=== PATIENT | female | born 1940 | race Two or more races ===

== ENCOUNTER 2024-06-19 09:41 | Emergency (ER) | payer MEDICARE, MEDICAID, SELFPAY ==
[2024-06-19 09:41] VITALS: BMI 32.4
[2024-06-19 09:52] VITALS: BP 168/81; PULSE 90; RESP 18; TEMP 36.6; O2SAT 95; BMI 32.4
--- NOTE | 2024-06-19 10:03 | EDNOTE_ITS ---
Lower Extremity Injury RME/HPI General Chief Complaint: Extremity Injury, Lower Stated Complaint: LEFT KNEE PAIN X1WK Time Seen by Provider: 06/19/24 09:53 Arrival date/time: 06/19/24 09:41 84-year-old female presents emergency department complains of a fall approxi-1 week ago injuring her left knee patient reports pain to the left knee patient also reports that approximate 10 days ago she hit herself in the hand with a hammer patient has bruising and swelling to her left hand Limitations: no limitations Related Data Home Medications ?Medication ?Instructions ?Recorded ?Confirmed levothyroxine 112 mcg tablet 112 mcg PO QDAY 09/02/22 01/06/24 losartan 25 mg tablet 25 mg PO QDAY 01/11/23 01/06/24 famotidine 20 mg tablet 20 mg PO QDAY 10/05/23 01/06/24 mirabegron 50 mg tablet,extended 50 mg PO QDAY 01/06/24 01/06/24 release 24 hr (Myrbetriq) Previous Rx's ?Medication ?Instructions ?Recorded albuterol sulfate 90 mcg/actuation 2 inh inhalation Q6H PRN shortness 04/12/24 aerosol inhaler of breath or wheezing #8.5 grams tramadol 25 mg tablet 25 mg PO BID PRN pain #10 tabs 06/19/24 Allergies Allergy/AdvReac Type Severity Reaction Status Date / Time No Known Allergies Allergy Verified 06/19/24 09:43 Review of Systems Review of Systems Systems Reviewed: All systems reviewed, normal except as documented Constitutional Constitutional: Reports system reviewed and no additional complaints, except as documented, Denies fever(s) and Denies headache(s) Eyes Eyes: Reports system reviewed and no additional complaints, except as documented and Denies blurry vision ENT Ears, Nose, Mouth, and Throat: Reports system reviewed and no additional complaints, except as documented, Denies headache(s), Denies nasal congestion and Denies nasal discharge Cardiovascular Cardiovascular: Reports system reviewed and no additional complaints, except as documented, Denies chest pain and Denies dyspnea Respiratory Respiratory: Reports system reviewed and no additional complaints, except as documented, Denies chest congestion, Denies cough and Denies dyspnea Gastrointestinal Gastrointestinal: Reports system reviewed and no additional complaints, except as documented and Denies abdominal pain Musculoskeletal Musculoskeletal: Reports system reviewed and no additional complaints, except as documented, Reports arthralgias, Denies deformity, Denies numbness, Reports stiffness and Denies tingling Integumentary/Breasts Skin/Breast: Reports system reviewed and no additional complaints, except as documented and Denies rash Neurologic Neurologic: Reports system reviewed and no additional complaints, except as documented, Reports as per HPI, Denies headache(s), Denies numbness and Denies tingling Past Medical History Past Medical History NEUROLOGIC: Negative Neurological Disorders or Seizures CARDIAC: Positive Cardiac Disorders, Hypercholesterolemia (TAKES MED) and Hypertension (TAKES MED); Negative Congestive Heart Failure, Edema, Cellulitis or Varicose Veins RESPIRATORY: Negative Chronic Obstructive Pulmonary Disease (COPD), Asthma, Tuberculosis or Sleep Apnea GASTROINTESTINAL: Positive Gastrointestinal Disorders, Gall Bladder Disease, Colitis, Hemorrhoids and Gastroesophageal Reflux Disease; Negative Hepatitis GENITOURINARY: Negative Genitourinary Disorders or Renal Disease REPRODUCTIVE: Positive Previous Pregnancies MUSCULOSKELETAL: Positive Musculoskeletal Disorders, Arthritis and Degenerative Disk Disease; Negative Carpal Tunnel Syndrome ENT: Positive Cataracts ENDOCRINE: Positive Endocrine Disorders and Hypothyroidism (TAKES MED); Negative Diabetes Mellitus Type 1 or Diabetes Mellitus Type 2 HEMATOLOGIC: Negative Blood Disorders or Sickle Cell Disease PSYCHO/SOCIAL: Positive Depression and Anxiety OTHER HISTORY: Positive Autoimmune Disease; Negative Hospitalization, Shingles, Falls, Blood Transfusions, Blood Transfusion Reaction, Anesthesia Reactions, Organ Transplant, Chemotherapy, Radiation Therapy, MRSA, Chicken Pox, Measles, Mumps or Cancer Family History FAMILY HISTORY: Positive Family Cardiac Disorders, Family Gastrointestinal Problems, Family Cancer and Family Surgery; Negative Family Psychiatric Problems, Family Respiratory Disorders or Family Anesthesia Reaction Surgical History SURGICAL: Positive Endocrine Surgery, Thyroidectomy, Abdominal Surgery, Bowel Surgery and Hysterectomy; Negative Cardiac Surgery, Pacemaker, Joint Replacement, Amputation, Open Reduction Internal Fixation, Arthroscopy, Neurologic Surgery, Vasectomy or Organ Transplant Social History SMOKING STATUS: Never smoker SUBSTANCE USE: does not use ED Exam General Limitations: Present no limitations General appearance: Present alert and in no apparent distress Head Head exam: Present atraumatic Eye Eye exam: Present normal appearance, PERRL and EOMI ENT ENT exam: Present normal exam, normal oropharynx and mucous membranes moist Neck Neck exam: Present normal inspection, full ROM and trachea midline Chest Chest inspection: Present normal inspection and symmetric chest wall rise Respiratory Respiratory exam: Present normal lung sounds bilaterally Cardiovascular Cardiovascular exam: Present regular rate, normal rhythm and normal heart sounds Abdominal Exam Abdominal exam: Present soft and normal bowel sounds Extremities Exam Extremities exam: Present normal inspection, full ROM, tenderness, normal capillary refill and joint swelling (Mild swelling left hand with bruising as well as mild swelling left knee); Absent pedal edema or calf tenderness Back Exam Back exam: Present normal inspection and full ROM Neurological Exam Neurological exam: Present alert, oriented X3 and CN II-XII intact Psychiatric Psychiatric exam: Present normal affect and normal mood Skin Skin exam: Present warm, dry, intact and normal color Course Quality Measures none Orders Category Date Time Status US venous doppler LE LT Stat Exams 06/19/24 10:04 Completed XR hand comp LT min 3V Stat Exams 06/19/24 10:04 Completed XR knee LT 3V Stat Exams 06/19/24 10:04 Completed Vital Signs Vital signs: Vital Signs Temperature 97.9 F 06/19/24 09:52 Pulse Rate 90 06/19/24 09:52 Respiratory Rate 18 06/19/24 09:52 Blood Pressure 168/81 H 06/19/24 09:52 Pulse Oximetry (%) 95 06/19/24 09:52 Oxygen Delivery Method Room Air 06/19/24 09:52 O2 saturation 95% room air within normal limits Extremity Injury, Lower MDM Narrative MDM Narrative:: 84-year-old female presents emergency department complains of a fall approxi-1 week ago injuring her left knee patient reports pain to the left knee patient also reports that approximate 10 days ago she hit herself in the hand with a hammer patient has bruising and swelling to her left hand X-rays as well as ultrasound obtained no acute emergent findings noted Patient has a knee brace already Patient discharged with pain medication Patient discharged home in no distress to follow-up with primary care doctor in the next 24 to 48 hours and for any worsening symptoms to return to the ER immediately Patient data External records reviewed:: [facility] previous records Clinical information provided by:: patient Social determinants that could affect healthcare access:: none Patient has the following chronic illnesses:: See history How is presenting disease/condition affected by chronic disease/condition?: uneffected by Evaluation data The following diagnostics were reviewed and interpreted by me:: radiology exam(s) Lab and/or radiology exams considered but not ordered:: Radiology obtained Interpretation Summary: Reviewed by me Medications / Prescriptions Medications or Prescriptions considered but not ordered:: Rx given Medication administrations:: Rx given Consultations Consultation(s) initiated? (list below): No Diagnosis Extremity Injury, Lower Differential Diagnosis: acute internal derangement of knee and other (Knee sprain, knee fracture) Most likely diagnosis given after review of the tests above:: Knee sprain Admission Indicated Admission indicated?: not indicated Admission Request Was there a request for admission?: No Disposition Plan Disposition Plan: Discharge Discharge Attestation Discharge Attestation: The patient and all family members were given an opportunity to ask questions and understood the discharge instructions. Discharge instructions specifically effects, indications for sooner follow up or return to the emergency department, and the expected course of current diagnosis. Patient condition: Stable Discharge Plan Plan Patient Disposition: HOME (Self Care) Disposition Comment: Stable Prescriptions/Referrals Prescriptions/Med Rec: New tramadol 25 mg tablet 25 mg PO BID PRN (Reason: pain) Qty: 10 0RF No Action mirabegron [Myrbetriq] 50 mg tablet extended release 24 hr 50 mg PO QDAY losartan 25 mg tablet 25 mg PO QDAY levothyroxine 112 mcg tablet 112 mcg PO QDAY Patient Comments: TAKE 1 TAB BY MOUTH ONCE A DAY (IN THE MORNING) 1 HOUR BEFORE MEALS famotidine 20 mg tablet 20 mg PO QDAY albuterol sulfate 90 mcg/actuation HFA aerosol inhaler 2 inh inhalation Q6H PRN (Reason: shortness of breath or wheezing) Qty: 8.5 0RF Referrals: Yudy Lanza FNP [Primary Care Provider] - In 1 week Problem List Clinical Impression: Acute pain of left knee Patient/Caregiver Discharge Instructions Education Materials: ED WHITNEY Wrap Additional Instructions: Please follow up with your primary care doctor in the next 24-48hrs for any worsening symptoms return here immediately Print Language: Burkinan Stand Alone Forms: Renee Award Info., Patient Portal Info Letter PATEL/KNIT GOODS PRESS HAND Supervising Physician PATEL/MELISSA Supervising Physician: Dr Álvarez
--- NOTE | 2024-06-19 10:04 | XR_ITS ---
Examination: Duplex scan of the lower extremity, unilateral left complete Date and time of exam: June 19, 2024 1052 hours INDICATIONS: Patient fell one month ago with injury to the left leg, persistent left lower leg pain Technique: Duplex scan of the extremity veins using B-mode/grayscale imaging and Doppler spectral analysis and color flow Attention is directed to internal echogenicity, compression and augmentation involving these veins, color flow assessment, spectral analysis Findings: Major deep venous structures in the extremity demonstrate normal course and caliber. There is no evidence of deep vein thrombosis. Normal color flow and spectral analysis Impression: Negative for DVT.. Technologist describes linear structure within the posterior tibial vein, for instance image 2, unclear etiology, recommend plain films left lower leg follow-up
--- NOTE | 2024-06-19 10:04 | XR_ITS ---
Examination: Hand, left 3 views Technique: Hand AP, oblique, lateral 3 views Date and time of exam: June 19, 2024 1015 hours INDICATIONS: Injury to the hand today, hand pain FINDINGS: Advanced osteoarthritis first carpometacarpal joint No acute fracture No dislocation IMPRESSION: No acute fracture
--- NOTE | 2024-06-19 10:04 | XR_ITS ---
Examination: Knee, left , 3 views Technique: Knee AP, lateral, oblique 3 views Date and time of exam: June 19, 2024 1015 hours INDICATIONS: Patient fell one month ago with injury to the knee, knee pain. FINDINGS: Severe osteopenia No fracture or dislocation IMPRESSION: No fracture or dislocation
== END 2024-06-19 12:28 | disposition home or self-care (01) ==
PROVIDERS: Emergency Provider Emergency Medicine; PCP Nurse Practitioner Family
DX: S60.222A Contusion of left hand, initial encounter (principal); S89.92XA Unspecified injury of left lower leg, initial encounter; W19.XXXA Unspecified fall, initial encounter; W22.8XXA Striking against or struck by other objects, initial encounter
CPT/HCPCS: 73130; 73562; 93971; 99284

== ENCOUNTER 2024-07-06 09:52 | Outpatient (AMB) | payer MEDICARE, MEDICAID, SELFPAY ==
[2024-07-06 10:50] VITALS: BP 154/79; PULSE 94; RESP 18; TEMP 36.8; O2SAT 94; BMI 32.0
--- NOTE | 2024-07-06 10:50 | ORTHONT_ITS ---
Vital signs 07/06/24 10:50 Height 1.52 m Height Method Stated Weight 74.417 kg Weight Measurement Method Standing Scale BMI 32.0 BP 154/79 H Blood Pressure Source Automatic Cuff Blood Pressure Location Left Upper Arm Position Sitting Respiration 18 Pulse 94 Pulse Source Monitor Temp 98.3 F Temp Source Temporal Artery Scan Pulse Oximetry (%) 94 L Oxygen Delivery Method Room Air Med/Allergies Allergies & Medications Allergies No Known Allergies Allergy (Verified 07/06/24 10:51) Medication Reconciliation levothyroxine 112 mcg tablet 112 mcg PO QDAY 09/02/22 [History Confirmed 4] losartan 25 mg tablet 25 mg PO QDAY 01/11/23 [History Confirmed 07/06/24] famotidine 20 mg tablet 20 mg PO QDAY 10/05/23 [History Confirmed 07/06/24] mirabegron 50 mg tablet,extended release 24 hr (Myrbetriq) 50 mg PO QDAY 01/06/24 [History Confirmed 07/06/24] albuterol sulfate 90 mcg/actuation aerosol inhaler 2 inh inhalation Q6H PRN shortness of breath or wheezing #8.5 grams 04/12/24 [Rx Confirmed 07/06/24] tramadol 25 mg tablet 25 mg PO BID PRN pain #10 tabs 06/19/24 [Rx Confirmed 07/06/24] Subjective Visit Visit for: follow up visit and knee Immunization / Flu Flu Vaccine in the Last 12 Months: No Flu Vaccine Exclusion Criteria: No Exclusion Criteria History of Present Illness Chief complaint: BILATERAL KNEE PAIN Date of injury / onset of symptoms: YEARS WORSENING THE LAST DAY 25 Patient is a 84-year-old female with bilateral knee pain worse on the left. The pains been ongoing for over 10 years but is worsened in the last 3 months. This occurred after a fall. She is at the emergency room and no fracture could be seen. She was discharged with a brace. Personal History Occupation: UNEMPLOYED Red flag PMH: none Pain Pain level (0-10): 10 Pain duration: CONSTANT Pain location: inside (medial), outside (lateral), anterior and posterior Pain quality: sharp, dull and aching Pain timing: night, increases with activity, stairs and other (specify) (LAYING) Associated signs & symptoms: numbness, weakness and stiffness Ambulatory data Ambulatory device: cane Treatments Improvement with previous injections: No Improvement with PT: No Improvement with NSAIDS: no Review of Systems Review of Systems: All systems negative unless otherwise noted in HPI. Exam Exam Patient is in no acute distress and is cooperative with the examination today. Breathing is nonlabored. In no respiratory distress. Bilateral extremities were evaluated and demonstrates sensation intact to light touch. Palpable pedal pulses are present. No significant edema is present. Bilateral hips were examined. The patient has no pain with log roll of the hips. Internal rotation to 30 degrees and external rotation to 30 degrees is painless. Negative FADIR. The left knee was examined. The left knee is in [varus] alignment. Range of motion from [0-115] degrees. Knee is stable to varus and valgus as well as AP translation with <5mm. Patient has a [negative] McMurrays. There is [no] pain with patellofemoral compression and [no] crepitus noted. The knee is [tender] to palpation [medially]. The right knee was also examined. The right knee is in [varus] alignment. Range of motion from [0-120] degrees. Knee is stable to varus and valgus as well as AP translation with <5mm. Patient has a [negative] McMurrays. There is [no] pain with patellofemoral compression and [no] crepitus noted. The knee is [tender] to palpation [medially]. X-rays demonstrate severe arthritis of the right knee with complete obliteration of the medial joint space. On the left side she has mild to moderate arthritis of the left knee Assessment and Plan Problem List (1) Degenerative arthritis of knee, bilateral: Status: Acute Plan: Patient is an 84-year-old female with bilateral knee pain and bilateral knee arthritis. We discussed nonoperative and operative options. Given her significant pain and mild to moderate arthritis on x-ray. I recommend continued conservative treatment at this time. We discussed bilateral knee cortisone injections today. Plan Recommend knee cortisone injections as patient would like to proceed with conservative treatment at this time. The risks and benefits of the procedure wer e reviewed with the patient and patient gave verbal consent to continue with the procedure. Procedure: performed by Dr. Genao Using sterile technique the Bilateral knees were thoroughly prepped with alc ohol, and approximately 1 cc of Kenalog 40 mg/mL and 4 cc of 1% lidocaine was injected into each knee without resistance into the medial tibial femoral joint space. The patient tolerated the procedure. Advanced Care Planning Discussion Advance care planning discussed with:: patient Office Procedures GNS Level of Care Nursing/Assessment Patient Status: Established Patient Nursing Assessment/Reassesment: Medication Reconciliation, Update PMH in EMR and Vital Signs Coordination of Care: Complex Care and Chronic Disease 1-5, Education Complex Pt/Fam, Consent,records obtained, informed consent, Results/Orders obtained and Staff clarify orders Special Needs: Language special needs Established Patient Charge Established Patient Point Assignment: 95 Established Patient Point Charge: EP Level 3 (80-115) Surgical Proc/IM SQ injection Major Surgical Procedure: Yes (BILATERAL KNEE INJECTION ) Medication Given Medication Given Medication Given: Yes Documented Dose Given: 8 Route: Infiitration Medication Given Medication Given Medication Given: Yes Documented Dose Given: 2 Route: Infiitration Office Meds Xylocaine 10 mg/mL (1 %) injection solution Performing Provider: Lobo Genao MD Performing Location: [facility] Administered by: Lobo Genao MD on 07/06/24 11:51 Dose Route Admin Location Dispensed Lot Number Expiration Date [facility] [employer] 40 mL Infiltration 40 mL [id number] [employer] triamcinolone acetonide 40 mg/mL suspension for injection Performing Provider: Lobo Genao MD Performing Location: [facility] Administered by: Lobo Genao MD on 07/06/24 11:51 Dose Route Admin Location Dispensed Lot Number Expiration Date [facility] [employer] 80 mg intra-articular 2 mL [id number] [employer] Past Medical History Past Medical History Have you ever been diagnosed with any of the following: Neurological Problems Seizures: No Cardiology Problems Hypercholesterolemia: Yes (TAKES MED) Congestive Heart Failure: No Edema: No Cellulitis: No Hypertension: Yes (TAKES MED) Varicose Veins: No Respiratory Problems Chronic Obstructive Pulmonary Disease (COPD): No Asthma: No Tuberculosis: No Sleep Apnea: No Stomache/Intestinal Problems Hepatitis: No Gall Bladder Disease: Yes Colitis: Yes Hemorrhoids: Yes Gastroesophageal Reflux Disease: Yes Genital/Urinary Problems Renal Disease: No Reproductive Problems Previous Pregnancies: Yes Musculoskeletal Problems Arthritis: Yes Degenerative Disk Disease: Yes Carpal Tunnel Syndrome: No Head,Eye,Nose,Throat Problems Cataracts: Yes Endocrine Problems Diabetes Mellitus Type 1: No Diabetes Mellitus Type 2: No Hypothyroidism: Yes (TAKES MED) Blood Problems Sickle Cell Disease: No Psychologic Problems Depression: Yes Anxiety: Yes Other Problems Hospitalization: No Shingles: No Falls: No Blood Transfusions: No Blood Transfusion Reaction: No Anesthesia Reactions: No Organ Transplant: No Chemotherapy: No Radiation Therapy: No MRSA: No Chicken Pox: No Measles: No Mumps: No Cancer: No Surgical History Hysterectomy: Yes Pacemaker: No Thyroidectomy: Yes
== END 2024-07-06 11:27 | disposition home or self-care (01) ==
LOC: HODSRG 09:52
PROVIDERS: PCP Nurse Practitioner Family; Referring Provider Nurse Practitioner Family; Supervising Provider Orthopaedic Surgery Adult Reconstructive Orthopaedic Surgery; Visit Provider Orthopaedic Surgery Adult Reconstructive Orthopaedic Surgery
DX: M17.0 Bilateral primary osteoarthritis of knee (principal); M25.562 Pain in left knee; M25.561 Pain in right knee; I10 Essential (primary) hypertension; E78.00 Pure hypercholesterolemia, unspecified; K21.9 Gastro-esophageal reflux disease without esophagitis; E03.9 Hypothyroidism, unspecified
CPT/HCPCS: 20610; 73564; 99213; J3301; J3490; G0463

== ENCOUNTER 2024-07-17 21:40 | Emergency (ER) | payer MEDICARE, MEDICAID, SELFPAY ==
[2024-07-17 21:41] VITALS: BMI 32.0
[2024-07-17 21:49] VITALS: BP 162/84; PULSE 86; RESP 20; TEMP 36.7; O2SAT 95
--- NOTE | 2024-07-17 22:17 | XR_ITS ---
Examination: CT brain head without contrast. 2-D sagittal coronal reconstructions Date and time of exam:July 17, 2024 1101 hrs. Comparison August 30, 2023 Indications: Head pain beginning this morning CTDI: vol (mGy):44.3 DLP: (mGycm): 895 Technique: Multiple CT axial sections of the brain have been obtained, 5 mm slice thickness. Contrast has not been administered. 2-D sagittal, coronal reconstructions have been obtained Low dose protocols were performed. One or more of the following dose reduction techniques were used; automated exposure control, adjustment of the mA and/or KV according to patient size, use of iterative reconstruction technique. Findings: No significant ventricular enlargement. Small cerebral calcifications Intra-axial or extra-axial hemorrhage density is not seen. No mass effect or midline shift Basal cisterns are not remarkable. Fourth ventricle is midline. Cranial vault intact. Impression: Negative for acute hemorrhage, mass effect or midline shift
--- NOTE | 2024-07-17 22:17 | XR_ITS ---
Examination: PA chest single view Technique: Upright PA chest single view Exam date and time: September 17, 2023 1037 hrs. Indications: Upper abdominal pain chest pain today Findings: Normal heart size Mild elevation left hemidiaphragm. No pneumonia or pulmonary edema Impression: No pneumonia or pulmonary edema
--- NOTE | 2024-07-17 22:18 | PD.EDRME ---
Rapid Medical Screening Exam E Arrival date/time: 07/17/24 21:40 84F with history of HTN and thyroid disorder presents to ED with 1 hour of BATES and gen ab pain and N/V. Chief Complaint: Headache Vital signs: Vital Signs Temperature 98.1 F 07/17/24 21:49 Pulse Rate 86 07/17/24 21:49 Respiratory Rate 20 07/17/24 21:49 Blood Pressure 162/84 H 07/17/24 21:49 Pulse Oximetry (%) 95 07/17/24 21:49 Oxygen Delivery Method Room Air 07/17/24 21:49
[2024-07-17 22:43] LABS: Basophils % (Auto) 0 % (0-2.5); Eosinophils # (Auto) 0.9 Thou/mm3 (0.0-0.5); Eosinophils % (Auto) 10 % (0-10); Hematocrit 41.4 % (36.0-46.0); Hemoglobin 13.6 g/dL (12.0-16.0); Immature Granulocytes % (Auto) 0 % (0-0); Immature Granulocytes Auto 0.03 Thou/mm3 (0.00-0.00); Lymphocytes # (Auto) 3.5 Thou/mm3 (1.0-4.8); Lymphocytes % (Auto) 40 % (10-50); Mean Corpuscular HGB Conc 32.9 g/dl (31.0-37.0); Mean Corpuscular Volume 91 fL (80-100); Monocytes # (Auto) 1.4 Thou/mm3 (0.0-0.8); Monocytes % (Auto) 15 % (0-12); Neutrophils # (Auto) 3.1 Thou/mm3 (1.8-7.7); Neutrophils % (Auto) 35 % (37-80); Nucleated Red Blood Cell % 0 /100 WBC (0); Platelet Count 263 Thou/mm3 (140-440); RDW Standard Deviation 46.6 fL (36.4-46.3); Red Blood Count 4.53 Miln/mm3 (4.00-5.20)
[2024-07-17] MEDS: ONDANSETRON ODT 4 MG TABRAP PO (22:51)
[2024-07-17 23:01] LABS: Partial Thromboplastin Time 26.2 Seconds (22.0-36.0); Prothrombin Time 11.3 Seconds (9.0-12.2)
[2024-07-17 23:07] LABS: Alanine Aminotransferase 46 U/L (10-49); Albumin, Serum 4.5 gm/dL (3.4-4.8); Albumin/Globulin Ratio 1.3 (1.2-2.2); Alkaline Phosphatase 102 U/L (46-116); Anion Gap 8 (7-16); Aspartate Amino Transferase 57 U/L (0-34); BUN/Creatinine Ratio 17 Ratio (12-20); Bilirubin,Total 0.6 mg/dL (0.3-1.2); Blood Urea Nitrogen 15 mg/dL (9-23); Calcium 10.2 mg/dL (8.3-10.6); Calcium (Corrected) 10.2 mg/dL (8.5-10.1); Carbon Dioxide 26.9 mMol/L (20.0-31.0); Chloride 106 mMol/L (98-107); Creatinine (Component) 0.9 mg/dL (0.6-1.3); Estimated Creatinine Clearance 42.7 mL/min (>60); Globulin 3.5 gm/dL (2.3-3.5); Glucose 111 mg/dL (74-106); Osmolality,Calculated 283 (275-295); Potassium 4.2 mMol/L (3.4-5.1); Sodium 141 mMol/L (136-145); Troponin I < 0.020 ng/mL (0.0-0.045); eGFR > 60 See Note
[2024-07-17 23:16] VITALS: BP 174/80; PULSE 78; RESP 17; TEMP 36.8; O2SAT 95
[2024-07-18 00:09] LABS: Lipase 62 U/L (12-53)
[2024-07-18 00:15] LABS: Bilirubin,Urine Negative (Negative); Blood,Urine Negative (Negative); Clarity,Urine Clear (Clear/Hazy); Collection Type, Urine Clean Catch; Color,Urine Lt-Yellow (Lt Yel-Yel); Glucose, Urine Negative (Negative); Ketones,Urine Negative (Negative); Leukocyte Esterase,Urine Negative (Negative); Nitrite,Urine Negative (Negative); PH,Urine 6.5 (5.0-7.0); Protein,Urine Negative (Neg - Trace); RBC,Urine 2 /hpf (0-3); Specific Gravity,Urine 1.009 (1.001-1.035); Squamous Epithelial Cell,Urine 1 /hpf (0-5); Urobilinogen,Urine Negative mg/dL (0.0-1.0); WBC,Urine 2 /hpf (0-5)
[2024-07-18 00:20] VITALS: BP 157/90; PULSE 75; RESP 18; O2SAT 93
--- NOTE | 2024-07-18 01:55 | PD.EDHA ---
ED Headache RME/HPI General Chief Complaint: Abdominal Pain Stated Complaint: HEADACHE X 1 HR Source: patient Arrival date/time: 07/17/24 21:40 Mode of arrival: ambulatory Limitations: no limitations RME / HPI RME / HPI Narrative: 07/17/24 21:40 84F with history of HTN and thyroid disorder presents to ED with 1 hour of BATES and gen ab pain and N/V. --- DR. CUI MAIN ED EVALUATION: 84 yo female who presents to ED for c/o headache. She notes she has insomnia and has been unable to sleep for the past 3 days. She notes her medications has not been working. Denies any other medical complaints. Related Data Home Medications ?Medication ?Instructions ?Recorded ?Confirmed levothyroxine 112 mcg tablet 112 mcg PO QDAY 09/02/22 07/06/24 losartan 25 mg tablet 25 mg PO QDAY 01/11/23 07/06/24 famotidine 20 mg tablet 20 mg PO QDAY 10/05/23 07/06/24 mirabegron 50 mg tablet,extended 50 mg PO QDAY 01/06/24 07/06/24 release 24 hr (Myrbetriq) Previous Rx's ?Medication ?Instructions ?Recorded albuterol sulfate 90 mcg/actuation 2 inh inhalation Q6H PRN shortness 04/12/24 aerosol inhaler of breath or wheezing #8.5 grams tramadol 25 mg tablet 25 mg PO BID PRN pain #10 tabs 06/19/24 Allergies Allergy/AdvReac Type Severity Reaction Status Date / Time No Known Allergies Allergy Verified 07/17/24 21:44 Review of Systems Review of Systems Systems Reviewed: All systems reviewed, normal except as documented Past Medical History Past Medical History NEUROLOGIC: Negative Neurological Disorders or Seizures CARDIAC: Positive Cardiac Disorders, Hypercholesterolemia (TAKES MED) and Hypertension (TAKES MED); Negative Congestive Heart Failure, Edema, Cellulitis or Varicose Veins RESPIRATORY: Negative Chronic Obstructive Pulmonary Disease (COPD), Asthma, Tuberculosis or Sleep Apnea GASTROINTESTINAL: Positive Gastrointestinal Disorders, Gall Bladder Disease, Colitis, Hemorrhoids and Gastroesophageal Reflux Disease; Negative Hepatitis GENITOURINARY: Negative Genitourinary Disorders or Renal Disease REPRODUCTIVE: Positive Previous Pregnancies MUSCULOSKELETAL: Positive Musculoskeletal Disorders, Arthritis and Degenerative Disk Disease; Negative Carpal Tunnel Syndrome ENT: Positive Cataracts ENDOCRINE: Positive Endocrine Disorders and Hypothyroidism (TAKES MED); Negative Diabetes Mellitus Type 1 or Diabetes Mellitus Type 2 HEMATOLOGIC: Negative Blood Disorders or Sickle Cell Disease PSYCHO/SOCIAL: Positive Depression and Anxiety OTHER HISTORY: Positive Autoimmune Disease; Negative Hospitalization, Shingles, Falls, Blood Transfusions, Blood Transfusion Reaction, Anesthesia Reactions, Organ Transplant, Chemotherapy, Radiation Therapy, MRSA, Chicken Pox, Measles, Mumps or Cancer Family History FAMILY HISTORY: Positive Family Cardiac Disorders, Family Gastrointestinal Problems, Family Cancer and Family Surgery; Negative Family Psychiatric Problems, Family Respiratory Disorders or Family Anesthesia Reaction Surgical History SURGICAL: Positive Endocrine Surgery, Thyroidectomy, Abdominal Surgery, Bowel Surgery and Hysterectomy; Negative Cardiac Surgery, Pacemaker, Joint Replacement, Amputation, Open Reduction Internal Fixation, Arthroscopy, Neurologic Surgery, Vasectomy or Organ Transplant Social History SMOKING STATUS: Never smoker SUBSTANCE USE: does not use ED Exam General Limitations: Present no limitations General appearance: Present alert and in no apparent distress Head Head exam: Present atraumatic, normocephalic and normal inspection Eye Eye exam: Present normal appearance, PERRL and EOMI ENT ENT exam: Present normal exam, normal oropharynx, TM's normal bilaterally and normal external ear exam Neck Neck exam: Present normal inspection and full ROM Chest Chest inspection: Present normal inspection and symmetric chest wall rise Respiratory Respiratory exam: Present normal lung sounds bilaterally Cardiovascular Cardiovascular exam: Present regular rate, normal rhythm and normal heart sounds Abdominal Exam Abdominal exam: Present normal bowel sounds Extremities Exam Extremities exam: Present normal inspection and full ROM Back Exam Back exam: Present normal inspection and full ROM Neurological Exam Neurological exam: Present alert, oriented X3 and CN II-XII intact Psychiatric Psychiatric exam: Present normal affect and normal mood; Absent depressed Skin Skin exam: Present warm, dry, intact and normal color Course Quality Measures none Orders Category Date Time Status CT Screening NOW Care 07/18/24 03:45 Completed EKG (ED ONLY) *Do not use* NOW Care 07/17/24 22:18 Completed Straight [In and Out Catheter] X1 Care 07/18/24 03:[address] abdomen pelvis w con Stat Exams 07/18/24 03:[address] head/brain wo con Stat Exams 07/17/24 22:17 Completed EKG (ED Only) Stat Exams 07/17/24 22:18 Ordered XR chest 1V portable Stat Exams 07/17/24 22:17 Completed CBC Stat Lab 07/17/24 22:24 Completed Comprehensive Metabolic Panel Stat Lab 07/17/24 22:24 Completed Lipase Stat Lab 07/17/24 22:24 Completed Partial Thromboplastin Time Stat Lab 07/17/24 22:24 Completed Prothrombin Time with INR Stat Lab 07/17/24 22:24 Completed Troponin I Stat Lab 07/17/24 22:24 Completed Urinalysis Stat Lab 07/18/24 00:07 Completed Acetaminophen Tab [Tylenol Tab] Med 07/18/24 02:53 Discontinued 650 mg PO X1 ONE Famotidine Inj [Pepcid Inj] Med 07/18/24 01:58 Discontinued 20 mg IVP X1 ONE Ondansetron Odt [Zofran Odt] Med 07/17/24 22:17 Discontinued 4 mg PO X1 ONE Sodium Chloride 0.9% 1000 ml [Ns] 1,000 ml Med 07/18/24 01:57 Discontinued IV 999 mls/hr Vital Signs Vital signs: Vital Signs Temperature 98.1 F 07/17/24 21:49 Pulse Rate 86 07/17/24 21:49 Respiratory Rate 20 07/17/24 21:49 Blood Pressure 162/84 H 07/17/24 21:49 Pulse Oximetry (%) 95 07/17/24 21:49 Oxygen Delivery Method Room Air 07/17/24 21:49 Headache MDM Narrative MDM Narrative:: Differential diagnoses include GERD, vital syndrome, dehydration, electrolyte imbalance, atypical presentation of coronary artery disease ? Scribe Attestation: I, Smita Pepe, am scribing for and in the presence of Dr. Hemphill. Provider Notation: Although this document has been carefully reviewed, there may still be some phonetic and other typographical errors. These errors are purely grammatical due to imperfections in the software program and should not be construed in any way to compromise the substance of the patient's medical care during this visit. Patient data External records reviewed:: [facility] previous records Clinical information provided by:: patient Social determinants that could affect healthcare access:: none Patient has the following chronic illnesses:: Insomnia, Hypercholesterolemia, Hypertension, Gastroesophageal Reflux Disease; Arthritis and Degenerative Disk Disease; Hypothyroidism; Depression, Anxiety How is presenting disease/condition affected by chronic disease/condition?: uneffected by Evaluation data The following diagnostics were reviewed and interpreted by me:: lab results and radiology exam(s) Lab and/or radiology exams considered but not ordered:: None Interpretation Summary: CT scan abdomen and pelvis. Findings: The lung bases are clear. The liver, gallbladder, pancreas, spleen, kidneys and adrenals are unremarkable. No evidence of bowel obstruction. No evidence of appendicitis. There is no mesenteric or retroperitoneal adenopathy. The urinary bladder is unremarkable. There is no free fluid or free air. Degenerative changes of the imaged portions of the spine. No acute fractures. Chronic multilevel disc disease. Diverticulosis of the colon. Mild thickening of the ascending colon associated with trace of peripheral fat stranding. Impression: Possible colitis of the ascending colon. No CT evidence of pancreatitis. Report Electronically Signed By: Simon Stewart 07/18/2024 5:08:22 AM [EST] Examination: PA chest single view Technique: Upright PA chest single view Exam date and time: September 17, 2023 1037 hrs. Indications: Upper abdominal pain chest pain today Findings: Normal heart size Mild elevation left hemidiaphragm. No pneumonia or pulmonary edema Impression: No pneumonia or pulmonary edema Dictated By: Brandon Higgins MD Examination: CT brain head without contrast. 2-D sagittal coronal reconstructions Date and time of exam:July 17, 2024 1101 hrs. Comparison August 30, 2023 Indications: Head pain beginning this morning Findings: No significant ventricular enlargement. Small cerebral calcifications Intra-axial or extra-axial hemorrhage density is not seen. No mass effect or midline shift Basal cisterns are not remarkable. Fourth ventricle is midline. Cranial vault intact. Impression: Negative for acute hemorrhage, mass effect or midline shift Dictated By: Brandon Higgins MD Medications / Prescriptions Medications or Prescriptions considered but not ordered:: None Medication administrations:: Medication Administration History Discontinued Medications Acetaminophen (Acetaminophen 325 Mg Tablet) 650 mg PO X1 ONE Stop: 07/18/24 02:54 Last Admin: 07/18/24 02:57 Dose: 650 mg Documented By: ARTHUR Famotidine (Famotidine Inj 10 Mg/Ml Vial 2 Ml) 20 mg IVP X1 ONE Stop: 07/18/24 01:59 Last Admin: 07/18/24 02:08 Dose: 20 mg Documented By: ARTHUR Sodium Chloride (Ns) 1,000 mls @ 999 mls/hr IV .Q1H1M ONE Stop: 07/18/24 02:57 Last Infusion: 07/18/24 03:04 Dose: Infused Documented By: Admin: 07/18/24 02:08 Dose: 999 mls/hr Documented By: ARTHUR Ondansetron HCl (Ondansetron Odt 4 Mg Tabrap) 4 mg PO X1 ONE; Protocol Stop: 07/17/24 22:18 Last Admin: 07/17/24 22:51 Dose: 4 mg Documented By: SISI As above Consultations Consultation(s) initiated? (list below): No Diagnosis Differential diagnosis headache: other (GERD, vital syndrome, dehydration, electrolyte imbalance, atypical presentation of coronary artery disease) Most likely diagnosis given after review of the tests above:: See clinical impression below Admission Indicated Admission indicated?: not indicated Admission Request Was there a request for admission?: No Disposition Plan Disposition Plan: Discharge Discharge Attestation Discharge Attestation: The patient and all family members were given an opportunity to ask questions and understood the discharge instructions. Discharge instructions specifically effects, indications for sooner follow up or return to the emergency department, and the expected course of current diagnosis. Patient condition: Stable Discharge Plan Plan Patient Disposition: HOME (Self Care) Patient condition on transfer: Stable Prescriptions/Referrals Prescriptions/Med Rec: No Action mirabegron [Myrbetriq] 50 mg tablet extended release 24 hr 50 mg PO QDAY losartan 25 mg tablet 25 mg PO QDAY levothyroxine 112 mcg tablet 112 mcg PO QDAY Patient Comments: TAKE 1 TAB BY MOUTH ONCE A DAY (IN THE MORNING) 1 HOUR BEFORE MEALS famotidine 20 mg tablet 20 mg PO QDAY albuterol sulfate 90 mcg/actuation HFA aerosol inhaler 2 inh inhalation Q6H PRN (Reason: shortness of breath or wheezing) Qty: 8.5 0RF tramadol 25 mg tablet 25 mg PO BID PRN (Reason: pain) Qty: 10 0RF Referrals: Lanza,Yudy, PLAN COORDINATOR [Primary Care Provider] - In 1 week Problem List Clinical Impression: Abdominal cramping Patient/Caregiver Discharge Instructions Diet Instructions: Liquids for the next 2 to 3 days to stay hydrated. Education Materials: ED Symptoms With Uncertain Cause Additional Instructions: Please return to emergency department for any worsening symptoms or any other concerns. You can do clear liquids for the next 2 to 3 days. Return if you have fever, any increasing pain, or any other concerns. Print Language: Luxembourgish Stand Alone Forms: Renee Award Info., Patient Portal Info Letter
[2024-07-18 02:07] VITALS: BP 172/86; PULSE 70; RESP 18; O2SAT 96
[2024-07-18] MEDS: SODIUM CHLORIDE 0.9% 1000 ML 1,000 ML 999 ML IV (02:08)
[2024-07-18] MEDS: FAMOTIDINE INJ 10 MG/ML VIAL 2 ML 20 MG IVP (02:08)
[2024-07-18] MEDS: ACETAMINOPHEN 325 MG TABLET 650 MG PO (02:57)
--- NOTE | 2024-07-18 03:42 | XR_ITS ---
Examination: CT abdomen with intravenous contrast CT pelvis with intravenous contrast 2-D coronal reconstructions 2-D sagittal reconstructions Date and time of exam:July 18, 2024 0419 hrs. Comparison June 04, 2023 Indications: Abdominal pain and abdominal distention beginning 3 days ago. CTDI: vol (mGy) 11.4 DLP: (mGycm) 5 34 Technique: Multiple axial sections of the abdomen and pelvis have been obtained. 64 slice high-resolution scanner used. 3 mm axial sections have been obtained, post intravenous injection 60 cc [id number] 2-D sagittal, coronal reconstructions obtained. Low dose protocols were performed. One or more of the following dose reduction techniques were used; automated exposure control, adjustment of the mA and/or KV according to patient size, use of iterative reconstruction technique. Findings: Liver is irregular in contour with diffuse fatty infiltration, hepatomegaly 18 cm Spleen is not enlarged No gallstones No pancreatic or adrenal mass No renal or ureteral calculi, no hydronephrosis Aorta normal size Abundant stool in the right colon Normal appendix No diverticulitis Urinary bladder intact with minimal wall thickening Advanced disc narrowing L5-S1 Impression: Moderate hepatomegaly, primary hepatocellular disease fatty liver No renal or ureteral calculi, no hydronephrosis Normal appendix I do not visualize definite colitis pattern Suspicious for mild cystitis
[2024-07-18 04:19] VITALS: BP 187/90; PULSE 71; RESP 17; TEMP 37.1; O2SAT 96
--- NOTE | 2024-07-18 05:09 | PRELIM_ITS ---
CT scan of the abdomen and pelvis with intravenous contrast (axial sections with sagittal and coronal reformats) July 18, 2024 0419 hoursClinical History: Elevated lipase, abdominal discomfort.Cristhian rison: Ultrasound of June 18, 2022.Findings:The lung bases are clear.The liver, gallbladder, panc reas, spleen, kidneys and adrenals are unremarkable.No evidence of bowel obstruction. No evidence of appendicitis. There is no mesenteric or retroperitoneal adenopathy.The urinary bladder is unremarkabl e. There is no free fluid or free air.Degenerative changes of the imaged portions of the spine. No ac [place] fractures. Chronic multilevel disc disease.Diverticulosis of the colon.Mild thickening of the asc ending colon associated with trace of peripheral fat stranding.Impression:Possible colitis of the asc ending colon.No CT evidence of pancreatitis. Report Electronically Signed By: Simon Stewart 2023 5:08:22 AM [EST]
[2024-07-18 05:40] VITALS: BP 143/86; PULSE 68; RESP 18; TEMP 36.8; O2SAT 95
== END 2024-07-18 05:41 | disposition home or self-care (01) ==
PROVIDERS: Physician Assistant; Emergency Provider Emergency Medicine; PCP Nurse Practitioner Family
DX: R10.9 Unspecified abdominal pain (principal); R51.9 Headache, unspecified; G47.00 Insomnia, unspecified
CPT/HCPCS: 36415; 70450; 71045; 74177; 80053; 81001; 83690; 84484; 85025; 85610; 85730; 96361; 96374; 99285; A4649; J3490; J7030; Q0162; Q9967; A9270

== ENCOUNTER 2024-07-27 10:53 | Outpatient (AMB) | payer MEDICARE, MEDICAID, SELFPAY ==
[2024-07-27 11:23] VITALS: BP 143/85; PULSE 86; RESP 16; TEMP 36.3; O2SAT 96; BMI 31.6
--- NOTE | 2024-07-27 11:23 | ORTHONT_ITS ---
Vital signs 07/27/24 11:23 Height 1.52 m Height Method Stated Weight 73.567 kg Weight Measurement Method Standing Scale BMI 31.6 BP 143/85 H Blood Pressure Source Automatic Cuff Blood Pressure Location Right Upper Arm Position Sitting Respiration 16 Pulse 86 Pulse Source Monitor Temp 97.4 F Temp Source Temporal Artery Scan Pulse Oximetry (%) 96 Oxygen Delivery Method Room Air Med/Allergies Allergies & Medications Allergies No Known Allergies Allergy (Verified 07/27/24 11:24) Medication Reconciliation levothyroxine 112 mcg tablet 112 mcg PO QDAY 09/02/22 [History Confirmed 07/27/24] losartan 25 mg tablet 25 mg PO QDAY 01/11/23 [History Confirmed 07/27/24] famotidine 20 mg tablet 20 mg PO QDAY 10/05/23 [History Confirmed 07/27/24] mirabegron 50 mg tablet,extended release 24 hr (Myrbetriq) 50 mg PO QDAY 01/06/24 [History Confirmed 07/27/24] albuterol sulfate 90 mcg/actuation aerosol inhaler 2 inh inhalation Q6H PRN shortness of breath or wheezing #8.5 grams 04/12/24 [Rx Confirmed 07/27/24] tramadol 25 mg tablet 25 mg PO BID PRN pain #10 tabs 06/19/24 [Rx Confirmed 07/27/24] diclofenac sodium 1 % topical gel (Arthritis Pain (diclofenac)) 4 g topical QID #100 grams 07/27/24 [Rx] naproxen 500 mg tablet 500 mg PO BID #30 tabs 07/27/24 [Rx] Exam Exam Patient is in no acute distress and is cooperative with the examination today. Breathing is nonlabored. In no respiratory distress. Bilateral extremities were evaluated and demonstrates sensation intact to light touch. Palpable pedal pulses are present. No significant edema is present. Bilateral hips were examined. The patient has no pain with log roll of the hips. Internal rotation to 30 degrees and external rotation to 30 degrees is painless. Negative FADIR. The left knee was examined. The left knee is in [varus] alignment. Range of motion from [0-115] degrees. Knee is stable to varus and valgus as well as AP translation with <5mm. Patient has a [negative] [place]. There is [no] pain with patellofemoral compression and [no] crepitus noted. The knee is [tender] to palpation [medially]. The right knee was also examined. The right knee is in [varus] alignment. Range of motion from [0-120] degrees. Knee is stable to varus and valgus as well as AP translation with <5mm. Patient has a [negative] [place]. There is [no] pain with patellofemoral compression and [no] crepitus noted. The knee is [tender] to palpation [medially]. X-rays demonstrate severe arthritis of the right knee with complete obliteration of the medial joint space. On the left side she has mild to moderate arthritis of the left knee Assessment and Plan Problem List (1) Degenerative arthritis of knee, bilateral: Status: Acute Plan: Patient is an 84-year-old female with bilateral knee pain and bilateral knee arthritis. We discussed nonoperative and operative options. Given her significant pain and mild to moderate arthritis on x-ray. I recommend continued conservative treatment at this time. We discussed bilateral knee cortisone injections today. Plan Recommend knee cortisone injections as patient would like to proceed with conservative treatment at this time. We gave her an injection at the last visit and it helped but she still has pain. I worry that some of the pain is from her spine as she has radicular symptoms that go down her leg including numbness and tingling. Advanced Care Planning Discussion Advance care planning discussed with:: patient Office Procedures GNS Level of Care Nursing/Assessment Patient Status: Established Patient Nursing Assessment/Reassesment: Medication Reconciliation, Update PMH in EMR and Vital Signs Coordination of Care: Complex Care and Chronic Disease 1-5, Education Complex Pt/Fam, 1 Ins Authorization and Staff clarify orders Special Needs: Language special needs Established Patient Charge Established Patient Point Assignment: 100 Established Patient Point Charge: EP Level 3 (80-115) MA Intake Visit Data Collection New Patient or Established: Established Patient (seen at [facility] within 3 years) Reason for Visit:: XRAY RESULTS/KNEE PAIN Seen by Clinical Staff ONLY (RN/MA): No Staff Accountant Required: Yes PCP or OBGYN visit in last 3 months: Yes Do You Feel Safe at Home: Yes Questionairres Past Medical History Past Medical History Have you ever been diagnosed with any of the following: Neurological Problems Seizures: No Cardiology Problems Hypercholesterolemia: Yes (TAKES MED) Congestive Heart Failure: No Edema: No Cellulitis: No Hypertension: Yes (TAKES MED) Varicose Veins: No Respiratory Problems Chronic Obstructive Pulmonary Disease (COPD): No Asthma: No Tuberculosis: No Sleep Apnea: No Stomache/Intestinal Problems Hepatitis: No Gall Bladder Disease: Yes Colitis: Yes Hemorrhoids: Yes Gastroesophageal Reflux Disease: Yes Genital/Urinary Problems Renal Disease: No Reproductive Problems Previous Pregnancies: Yes Musculoskeletal Problems Arthritis: Yes Degenerative Disk Disease: Yes Carpal Tunnel Syndrome: No Head,Eye,Nose,Throat Problems Cataracts: Yes Endocrine Problems Diabetes Mellitus Type 1: No Diabetes Mellitus Type 2: No Hypothyroidism: Yes (TAKES MED) Blood Problems Sickle Cell Disease: No Psychologic Problems Depression: Yes Anxiety: Yes Other Problems Hospitalization: No Shingles: No Falls: No Blood Transfusions: No Blood Transfusion Reaction: No Anesthesia Reactions: No Organ Transplant: No Chemotherapy: No Radiation Therapy: No MRSA: No Chicken Pox: No Measles: No Mumps: No Cancer: No Surgical History Hysterectomy: Yes Pacemaker: No Thyroidectomy: Yes Subjective Visit Visit for: follow up visit and knee Immunization / Flu Flu Vaccine in the Last 12 Months: Yes Flu Vaccine Exclusion Criteria: Already Received History of Present Illness Chief complaint: XRAY RESULTS/ LT KNEE PAIN Patient is a 84-year-old female with bilateral knee pain worse on the left. The pains been ongoing for over 10 years but is worsened in the last 3 months. This occurred after a fall. She is at the emergency room and no fracture could be seen. She was discharged with a brace. She reports a lot of her pain is in the back and radiates down her leg. I wonder how much of the pain that she from her back breath in her knee Pain Pain level (0-10): 0 Pain duration: WITH MOVEMENT Pain location: inside (medial), outside (lateral), anterior and posterior Pain quality: dull and aching Pain timing: increases with activity Associated signs & symptoms: weakness Ambulatory data Ambulatory device: cane Treatments Number of previous injections: 2 Improvement with previous injections: Yes Number of Physical Therapy sessions: 10 Improvement with PT: Yes Improvement with NSAIDS: n/a Review of Systems Review of Systems: All systems negative unless otherwise noted in HPI.
== END 2024-07-27 11:39 | disposition home or self-care (01) ==
PROVIDERS: PCP Nurse Practitioner Family; Referring Provider Nurse Practitioner Family; Supervising Provider Orthopaedic Surgery Adult Reconstructive Orthopaedic Surgery; Visit Provider Orthopaedic Surgery Adult Reconstructive Orthopaedic Surgery
DX: M17.0 Bilateral primary osteoarthritis of knee (principal); M25.562 Pain in left knee; M25.561 Pain in right knee; I10 Essential (primary) hypertension; E78.00 Pure hypercholesterolemia, unspecified; E03.9 Hypothyroidism, unspecified; K21.9 Gastro-esophageal reflux disease without esophagitis
CPT/HCPCS: 99213; G0463

== ENCOUNTER 2024-08-28 09:14 | Outpatient (AMB) | payer MEDICARE, MEDICAID, SELFPAY ==
[2024-08-28 09:47] VITALS: BP 164/84; PULSE 85; RESP 18; TEMP 36.4; O2SAT 94; BMI 31.8
--- NOTE | 2024-08-28 09:47 | ORTHONT_ITS ---
Vital signs 08/28/24 09:47 Height 1.52 m Height Method Stated Weight 73.68 kg Weight Measurement Method Standing Scale BMI 31.8 BP 164/84 H Blood Pressure Source Automatic Cuff Blood Pressure Location Right Upper Arm Position Sitting Respiration 18 Pulse 85 Pulse Source Monitor Temp 97.5 F Temp Source Temporal Artery Scan Pulse Oximetry (%) 94 L Oxygen Delivery Method Room Air Med/Allergies Allergies & Medications Allergies No Known Allergies Allergy (Verified 08/28/24 09:47) Medication Reconciliation levothyroxine 112 mcg tablet 112 mcg PO QDAY 09/02/22 [History Confirmed 5] losartan 25 mg tablet 25 mg PO QDAY 01/11/23 [History Confirmed 08/28/24] famotidine 20 mg tablet 20 mg PO QDAY 10/05/23 [History Confirmed 08/28/24] mirabegron 50 mg tablet,extended release 24 hr (Myrbetriq) 50 mg PO QDAY 01/06/24 [History Confirmed 08/28/24] albuterol sulfate 90 mcg/actuation aerosol inhaler 2 inh inhalation Q6H PRN shortness of breath or wheezing #8.5 grams 04/12/24 [Rx Confirmed 08/28/24] tramadol 25 mg tablet 25 mg PO BID PRN pain #10 tabs 06/19/24 [Rx Confirmed 08/28/24] diclofenac sodium 1 % topical gel (Arthritis Pain (diclofenac)) 4 g topical QID #100 grams 07/27/24 [Rx Confirmed 08/28/24] naproxen 500 mg tablet 500 mg PO BID #30 tabs 07/27/24 [Rx Confirmed 08/28/24] Exam Exam Patient is in no acute distress and is cooperative with the examination today. Breathing is nonlabored. In no respiratory distress. Bilateral extremities were evaluated and demonstrates sensation intact to light touch. Palpable pedal pulses are present. No significant edema is present. Bilateral hips were examined. The patient has no pain with log roll of the hips. Internal rotation to 30 degrees and external rotation to 30 degrees is painless. Negative FADIR. The left knee was examined. The left knee is in [varus] alignment. Range of motion from [0-115] degrees. Knee is stable to varus and valgus as well as AP t ranslation with <5mm. Patient has a [negative] McMurrays. There is [no] pain with patellofemoral compression and [no] crepitus noted. The knee is [tender] to palpation [medially]. The right knee was also examined. The right knee is in [varus] alignment. Range of motion from [0-120] degrees. Knee is stable to varus and valgus as well as AP translation with <5mm. Patient has a [negative] McMurrays. There is [no] pain with patellofemoral compression and [no] crepitus noted. The knee is [tender] to palpation [medially]. X-rays demonstrate severe arthritis of the right knee with complete obliteration of the medial joint space. On the left side she has mild to moderate arthritis of the left knee Assessment and Plan Problem List (1) Degenerative arthritis of knee, bilateral: Status: Acute Plan: Patient is an 84-year-old female with bilateral knee pain and bilateral knee arthritis. We discussed nonoperative and operative options. Given her significant pain and mild to moderate arthritis on x-ray. I recommend continued conservative treatment at this time. She had injections 6 weeks ago and they are still working. Plan I worry that some of the pain is from her spine as she has radicular symptoms that go down her leg including numbness and tingling. We recommend a nonoperative spine surgeon and repeat injections in 6 weeks. Advanced Care Planning Discussion Advance care planning discussed with:: patient Office Procedures GNS Level of Care Nursing/Assessment Patient Status: Established Patient Nursing Assessment/Reassesment: Medication Reconciliation, Update PMH in EMR and Vital Signs Coordination of Care: Complex Care and Chronic Disease 1-5, Education Complex Pt/Fam, Consent,records obtained, informed consent, Results/Orders obtained and Staff clarify orders Special Needs: Language special needs Established Patient Charge Established Patient Point Assignment: 95 Established Patient Point Charge: EP Level 3 (80-115) MA Intake Visit Data Collection New Patient or Established: Established Patient (seen at [facility] within 3 years) Reason for Visit:: F/U KNEE PAIN Seen by Clinical Staff ONLY (RN/MA): No Verbal consent obtained for Telemed visit?: No 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 PCP or OBGYN visit in last 3 months: Yes Hx Now: No Do You Feel Safe at Home: Yes Authorities Contacted: N/A Questionairres Past Medical History Past Medical History Have you ever been diagnosed with any of the following: Neurological Problems Seizures: No Cardiology Problems Hypercholesterolemia: Yes Congestive Heart Failure: No Edema: No Cellulitis: No Hypertension: Yes Varicose Veins: No Respiratory Problems Chronic Obstructive Pulmonary Disease (COPD): No Asthma: No Tuberculosis: No Sleep Apnea: No Stomache/Intestinal Problems Hepatitis: No Gall Bladder Disease: Yes Colitis: Yes Hemorrhoids: Yes Gastroesophageal Reflux Disease: Yes Genital/Urinary Problems Renal Disease: No Reproductive Problems Previous Pregnancies: Yes Musculoskeletal Problems Arthritis: Yes Degenerative Disk Disease: Yes Carpal Tunnel Syndrome: No Head,Eye,Nose,Throat Problems Cataracts: Yes Endocrine Problems Diabetes Mellitus Type 1: No Diabetes Mellitus Type 2: No Hypothyroidism: Yes Blood Problems Sickle Cell Disease: No Psychologic Problems Depression: Yes Anxiety: Yes Other Problems Hospitalization: No Shingles: No Falls: No Blood Transfusions: No Blood Transfusion Reaction: No Anesthesia Reactions: No Organ Transplant: No Chemotherapy: No Radiation Therapy: No MRSA: No Chicken Pox: No Measles: No Mumps: No Cancer: No Surgical History Hysterectomy: Yes Pacemaker: No Thyroidectomy: Yes Subjective Visit Visit for: follow up visit and knee Immunization / Flu Flu Vaccine in the Last 12 Months: No Flu Vaccine Exclusion Criteria: No Exclusion Criteria History of Present Illness Chief complaint: F/U ON KNEE PAIN Patient is a 84-year-old female with bilateral knee pain worse on the left. The pains been ongoing for over 10 years but is worsened in the last 4 months. This occurred after a fall. She is at the emergency room and no fracture could be seen. She was discharged with a brace. She reports a lot of her pain is in the back and radiates down her leg. I wonder how much of the pain is from the back versus the knee. Pain Pain level (0-10): 8 Pain duration: ALL DAY Pain location: inside (medial), outside (lateral) and anterior Pain quality: sharp, dull and aching Pain timing: increases with activity Associated signs & symptoms: none Ambulatory data Ambulatory device: cane Treatments Number of previous injections: 2 Improvement with previous injections: Yes Number of Physical Therapy sessions: 10 Improvement with PT: No Improvement with NSAIDS: no Review of Systems Review of Systems: All systems negative unless otherwise noted in HPI.
== END 2024-08-28 10:02 | disposition home or self-care (01) ==
LOC: HODSRG 09:14
PROVIDERS: PCP Nurse Practitioner Family; Referring Provider Nurse Practitioner Family; Supervising Provider Orthopaedic Surgery Adult Reconstructive Orthopaedic Surgery; Visit Provider Orthopaedic Surgery Adult Reconstructive Orthopaedic Surgery
DX: M17.0 Bilateral primary osteoarthritis of knee (principal); M25.562 Pain in left knee; M25.561 Pain in right knee; I10 Essential (primary) hypertension; E78.00 Pure hypercholesterolemia, unspecified; K21.9 Gastro-esophageal reflux disease without esophagitis; E03.9 Hypothyroidism, unspecified
CPT/HCPCS: 99213; G0463

== ENCOUNTER 2024-10-02 09:24 | Outpatient (AMB) | payer MEDICARE, MEDICAID, SELFPAY ==
[2024-10-02 09:39] VITALS: BP 132/85; PULSE 97; RESP 18; TEMP 36.2; O2SAT 97; BMI 32.2
--- NOTE | 2024-10-02 09:39 | ORTHONT_ITS ---
Vital signs 10/02/24 09:39 Height 1.52 m Height Method Stated Weight 74.531 kg Weight Measurement Method Standing Scale BMI 32.2 BP 132/85 H Blood Pressure Source Automatic Cuff Blood Pressure Location Left Upper Arm Position Sitting Respiration 18 Pulse 97 Pulse Source Monitor Temp 97.1 F Temp Source Temporal Artery Scan Pulse Oximetry (%) 97 Oxygen Delivery Method Room Air Med/Allergies Allergies & Medications Allergies No Known Allergies Allergy (Verified 10/02/24 09:40) Medication Reconciliation levothyroxine 112 mcg tablet 112 mcg PO QDAY 09/02/22 [History Confirmed 10/02/24] losartan 25 mg tablet 25 mg PO QDAY 01/11/23 [History Confirmed 10/02/24] famotidine 20 mg tablet 20 mg PO QDAY 10/05/23 [History Confirmed 10/02/24] mirabegron 50 mg tablet,extended release 24 hr (Myrbetriq) 50 mg PO QDAY 01/06/24 [History Confirmed 10/02/24] albuterol sulfate 90 mcg/actuation aerosol inhaler 2 inh inhalation Q6H PRN shortness of breath or wheezing #8.5 grams 04/12/24 [Rx Confirmed 10/02/24] tramadol 25 mg tablet 25 mg PO BID PRN pain #10 tabs 06/19/24 [Rx Confirmed 10/02/24] diclofenac sodium 1 % topical gel (Arthritis Pain (diclofenac)) 4 g topical QID #100 grams 07/27/24 [Rx Confirmed 10/02/24] naproxen 500 mg tablet 500 mg PO BID #30 tabs 07/27/24 [Rx Confirmed 10/02/24] diclofenac sodium 1 % topical gel (Arthritis Pain (diclofenac)) 4 g topical QID #100 grams 09/02/24 [Rx Confirmed 10/02/24] Exam Exam Patient is in no acute distress and is cooperative with the examination today. Breathing is nonlabored. In no respiratory distress. Bilateral extremities were evaluated and demonstrates sensation intact to light touch. Palpable pedal pulses are present. No significant edema is present. Bilateral hips were examined. The patient has no pain with log roll of the hips. Internal rotation to 30 degrees and external rotation to 30 degrees is painless. Negative FADIR. The left knee was examined. The left knee is in [varus] alignment. Range of motion from [0-115] degrees. Knee is stable to varus and valgus as well as AP translation with <5mm. Patient has a [negative] McMurrays. There is [no] pain w ith patellofemoral compression and [no] crepitus noted. The knee is [tender] to palpation [medially]. The right knee was also examined. The right knee is in [varus] alignment. Range of motion from [0-120] degrees. Knee is stable to varus and valgus as well as AP translation with <5mm. Patient has a [negative] McMurrays. There is [no] pain with patellofemoral compression and [no] crepitus noted. The knee is [tender] to palpation [medially]. X-rays demonstrate severe arthritis of the right knee with complete obliteration of the medial joint space. On the left side she has mild to moderate arthritis of the left knee Assessment and Plan Problem List (1) Degenerative arthritis of knee, bilateral: Status: Acute Plan: Patient is an 84-year-old female with bilateral knee pain and bilateral knee arthritis. She reports that the right knee injection worked quite a bit but the left knee injection did not do very much. She would like a repeat left knee injection today Plan Recommend knee cortisone injection as patient would like to proceed with conservative treatment at this time. The risks and benefits of the procedure were reviewed with the patient and patient gave verbal consent to continue with the procedure. Procedure: performed by Dr. Genao Using sterile technique the left knee was thoroughly prepped with alcohol, and approximately 1 cc of Kenalog 40 mg/mL and 4 cc of 1% lidocaine was injected without resistance into the medial tibial femoral joint space. The patient tolerated the procedure. Advanced Care Planning Discussion Advance care planning discussed with:: patient Office Procedures GNS Level of Care Nursing/Assessment Patient Status: Established Patient Nursing Assessment/Reassesment: Medication Reconciliation, Update PMH in EMR and Vital Signs Coordination of Care: Complex Care and Chronic Disease 1-5, Education Complex Pt/Fam, Consent,records obtained, informed consent, Results/Orders obtained and Staff clarify orders Special Needs: Language special needs Established Patient Charge Established Patient Point Assignment: 95 Established Patient Point Charge: EP Level 3 (80-115) MA Intake Visit Data Collection New Patient or Established: Established Patient (seen at [facility] within 3 years) Reason for Visit:: F/U KNEE INJECTION Seen by Clinical Staff ONLY (RN/MA): No Verbal consent obtained for Telemed visit?: No 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 PCP or OBGYN visit in last 3 months: Yes Hx Now: No Do You Feel Safe at Home: Yes Authorities Contacted: N/A Questionairres Past Medical History Past Medical History Have you ever been diagnosed with any of the following: Neurological Problems Seizures: No Cardiology Problems Hypercholesterolemia: Yes Congestive Heart Failure: No Edema: No Cellulitis: No Hypertension: Yes Varicose Veins: No Respiratory Problems Chronic Obstructive Pulmonary Disease (COPD): No Asthma: No Tuberculosis: No Sleep Apnea: No Smoking: No Smoking Cessation Counseling: No Smoking Exposure: No Stomache/Intestinal Problems Hepatitis: No Gall Bladder Disease: Yes Colitis: Yes Hemorrhoids: Yes Gastroesophageal Reflux Disease: Yes Genital/Urinary Problems Renal Disease: No Reproductive Problems Previous Pregnancies: Yes Musculoskeletal Problems Arthritis: Yes Degenerative Disk Disease: Yes Carpal Tunnel Syndrome: No Head,Eye,Nose,Throat Problems Cataracts: Yes Endocrine Problems Diabetes Mellitus Type 1: No Diabetes Mellitus Type 2: No Hypothyroidism: Yes Blood Problems Sickle Cell Disease: No Psychologic Problems Depression: Yes Anxiety: Yes Other Problems Hospitalization: No Shingles: No Falls: No Blood Transfusions: No Blood Transfusion Reaction: No Anesthesia Reactions: No Organ Transplant: No Chemotherapy: No Radiation Therapy: No MRSA: No Chicken Pox: No Measles: No Mumps: No Cancer: No Surgical History Hysterectomy: Yes Pacemaker: No Thyroidectomy: Yes Subjective Visit Visit for: follow up visit and knee Immunization / Flu Flu Vaccine in the Last 12 Months: No Flu Vaccine Exclusion Criteria: No Exclusion Criteria History of Present Illness Chief complaint: F/U KNEE INJECTIONS Patient is a 84-year-old female with bilateral knee pain worse on the left. The pains been ongoing for over 10 years but is worsened in the last 4 months. This occurred after a fall. She reports a lot of her pain is in the back and radiates down her leg. I wonder how much of the pain is from the back versus the knee. Pain Pain level (0-10): 4 Pain duration: WITH MOVEMENT Pain location: inside (medial), outside (lateral) and anterior Pain quality: dull and aching Pain timing: increases with activity Associated signs & symptoms: none Ambulatory data Ambulatory device: cane Treatments Number of previous injections: 2 Improvement with previous injections: Yes Number of Physical Therapy sessions: 10 Improvement with PT: No Improvement with NSAIDS: no Review of Systems Review of Systems: All systems negative unless otherwise noted in HPI.
== END 2024-10-02 10:17 | disposition home or self-care (01) ==
LOC: HODSRG 09:24
PROVIDERS: PCP Nurse Practitioner Family; Referring Provider Nurse Practitioner Family; Supervising Provider Orthopaedic Surgery Adult Reconstructive Orthopaedic Surgery; Visit Provider Orthopaedic Surgery Adult Reconstructive Orthopaedic Surgery
DX: M25.562 Pain in left knee (principal); M25.561 Pain in right knee; M17.0 Bilateral primary osteoarthritis of knee
CPT/HCPCS: 20610; 99213; J3301; J3490; G0463

== ENCOUNTER → 2024-10-09 | Outpatient (CLI) | payer MEDICARE, MEDICAID, SELFPAY ==
--- NOTE | 2024-10-09 08:24 | XR_ITS ---
Examination: PA lateral chest 2 views Technique: Upright PA lateral chest 2 views Indications: Coughing one month Exam date and time: October 09, 2024 0729 hrs. Findings: Normal heart size Moderate hyperexpansion. No pneumonia or pulmonary edema Impression: Moderate hyperexpansion No pneumonia or pulmonary edema
== END | disposition home or self-care (01) ==
PROVIDERS: PCP Student in an Organized Health Care Education/Training Program; Referring Provider Student in an Organized Health Care Education/Training Program; Visit Provider Student in an Organized Health Care Education/Training Program
DX: J98.4 Other disorders of lung (principal); R05.3 Chronic cough
CPT/HCPCS: 71046

== ENCOUNTER → 2025-01-04 | Outpatient (BNVA) | payer MEDICARE, MEDICAID, SELFPAY | END | disposition home or self-care (01) | PROVIDERS: PCP Nurse Practitioner Family; Referring Provider Nurse Practitioner Family; Visit Provider Urology | DX: N32.81 Overactive bladder (principal); N30.10 Interstitial cystitis (chronic) without hematuria; I10 Essential (primary) hypertension; E78.00 Pure hypercholesterolemia, unspecified; K21.9 Gastro-esophageal reflux disease without esophagitis; E03.9 Hypothyroidism, unspecified | CPT/HCPCS: 81003; 99212; G0463 ==

== ENCOUNTER → 2025-01-04 | Outpatient (CLI) | payer MEDICARE, MEDICAID, SELFPAY ==
--- NOTE | 2025-01-04 14:30 | XR_ITS ---
Examination: Thyroid sonography complete TECHNIQUE: Grayscale sonographic images thyroid lobes Date and time: January 04, 2025 1412 hours INDICATIONS: Dysphonia hyperthyroidism, hoarseness of voice and neck pain 2 months FINDINGS: Right thyroid 5.6 cm 5 mm midpole 3 mm lower pole calcifications Left thyroid 3.7 cm No solid nodules IMPRESSION: Right thyromegaly, consider correlation with oral I-123 thyroid uptake and scan
== END | disposition home or self-care (01) ==
PROVIDERS: Referring Provider Student in an Organized Health Care Education/Training Program; Visit Provider Student in an Organized Health Care Education/Training Program
DX: E01.0 Iodine-deficiency related diffuse (endemic) goiter (principal)
CPT/HCPCS: 76536

== ENCOUNTER → 2025-02-04 | Outpatient (CLI) | payer MEDICARE, MEDICAID, SELFPAY ==
--- NOTE | 2025-02-04 10:26 | XR_ITS ---
Examination: PA lateral chest 2 views TECHNIQUE: Upright PA lateral chest 2 views Date and time: February 04, 2025, 1037 hours Comparison October 09, 2024 INDICATIONS: Shortness of breath one year. FINDINGS: Normal heart size No lobar pneumonia or pulmonary edema Prominent osteopenia IMPRESSION: No pneumonia or pulmonary edema
== END | disposition home or self-care (01) ==
PROVIDERS: Referring Provider Specialist; Visit Provider Specialist
DX: R06.02 Shortness of breath (principal)
CPT/HCPCS: 71046

== ENCOUNTER → 2025-03-11 | Outpatient (CLI) | payer MEDICARE, MEDICAID, SELFPAY ==
--- NOTE | 2025-03-11 15:00 | XR_ITS ---
Examination: Ultrasound soft tissue extremity right upper arm TECHNIQUE: Grayscale sonographic images soft tissue upper right arm Date and time: March 11, 2025 1523 hours INDICATIONS: Right arm pain 2 days in the biceps region FINDINGS: No cystic or solid mass noted IMPRESSION: No cystic or solid mass noted If clinical suspicion is tear of the long head of the biceps, consider MRI shoulder upper arm follow-up, without contrast
== END | disposition home or self-care (01) ==
DX: M79.621 Pain in right upper arm (principal)
CPT/HCPCS: 76882

== ENCOUNTER 2025-05-16 13:08 | Emergency (ER) | payer MEDICARE, MEDICAID, SELFPAY ==
[2025-05-16 13:09] VITALS: BP 151/87; PULSE 81; RESP 20; TEMP 36.8; O2SAT 90
--- NOTE | 2025-05-16 13:12 | XR_ITS ---
EXAMINATION: AP chest single view TECHNIQUE: 1. AP portable upright chest single view Date and time: May 16, 2025, 1346 hours INDICATION: Chest pain today. FINDINGS: Mild accentuation basilar bronchovascular markings Normal heart size No pneumonia or pulmonary edema IMPRESSION: Basilar bronchitis pattern
--- NOTE | 2025-05-16 13:13 | EKG_ITS ---
[facility] Test Date: 2025-05-16 Pat Name: JO ANN KIM Department: Room: - Gender: Female Field Representative/Health Education: : 1940 Requested By: Bruec Fuller Order Number: [id number] Reading MD: Bruce Fuller Measurements Intervals Tucker Rate: 76 P: 24 [place]: 133 QRS: 0 QRSD: 89 T: 22 QT: 393 QTc: 444 Interpretive Statements SINUS RHYTHM Compared to ECG 04/12/2024 16:55:51 No significant changes /store/S0/[id number]
--- NOTE | 2025-05-16 13:13 | PD.EDADULT ---
ED General RME/HPI General Chief complaint: Chest Pain Stated complaint: CHEST PAIN Time Seen by Provider: 05/16/25 13:12 Arrival date/time: 05/16/25 13:08 CC: Chest pain hypertension nausea vomiting HPI patient presents to the ER via EMS report highest pressure of 200/100, the patient was seen by her primary care doctor in [place], at which time the patient had elevated blood pressure and chest pain. The patient lives here and portable and elected to have herself transferred here. Patient is awake alert oriented complaining of some chest pressure, also nausea without any active vomiting. Pressure is 3-4 on a 10 scale. Related Data Home Medications ?Medication ?Instructions ?Recorded ?Confirmed losartan 25 mg tablet 25 mg PO QDAY 01/11/23 01/04/25 mirabegron 50 mg tablet,extended 50 mg PO QDAY 01/06/24 01/04/25 release 24 hr (Myrbetriq) benzonatate 100 mg capsule 100 mg PO TID 01/04/25 01/04/25 bisacodyl 5 mg tablet 5 mg PO BID 01/04/25 01/04/25 methimazole 5 mg tablet 5 mg PO QDAY 01/04/25 01/04/25 omeprazole 40 mg capsule,delayed 40 mg PO QDAY 01/04/25 01/04/25 release Previous Rx's ?Medication ?Instructions ?Recorded naproxen 500 mg tablet 500 mg PO BID #30 tabs 07/27/24 Allergies Allergy/AdvReac Type Severity Reaction Status Date / Time No Known Allergies Allergy Verified 05/16/25 13:41 Review of Systems Review of Systems Narrative Review of Systems: GEN: No fever, no chills, no weight loss EYES: No discharge, no visual changes, no pain HEENT: No ear pain, no congestion, no sore throat PULM: No shortness of breath, no cough, no congestion CV: + chest pain, no dyspnea on exertion, no palpitations GI: + nausea, no vomiting, no diarrhea, no pain, no constipation : No frequency, no urgency, no dysuria MUSC/SKEL: No joint pain, no back pain SKIN: No rash PSYCH: No hallucinations, no depression HEME/LYMPH: No easy bleeding or bruising tendencies NEURO: No weakness, no headache Past Medical History Past Medical History NEUROLOGIC: Negative Neurological Disorders or Seizures CARDIAC: Positive Hypercholesterolemia and Hypertension; Negative Cardiac Disorders, Congestive Heart Failure, Edema, Cellulitis or Varicose Veins RESPIRATORY: Negative Chronic Obstructive Pulmonary Disease (COPD), Asthma, Tuberculosis, Sleep Apnea, Smoking, Smoking Cessation Counseling or Smoking Exposure GASTROINTESTINAL: Positive Gastrointestinal Disorders, Gall Bladder Disease, Colitis, Hemorrhoids and Gastroesophageal Reflux Disease; Negative Hepatitis GENITOURINARY: Negative Genitourinary Disorders or Renal Disease REPRODUCTIVE: Positive Previous Pregnancies MUSCULOSKELETAL: Positive Musculoskeletal Disorders, Arthritis and Degenerative Disk Disease; Negative Carpal Tunnel Syndrome ENT: Positive Cataracts ENDOCRINE: Positive Endocrine Disorders and Hypothyroidism; Negative Diabetes Mellitus Type 1 or Diabetes Mellitus Type 2 HEMATOLOGIC: Negative Blood Disorders or Sickle Cell Disease PSYCHO/SOCIAL: Positive Depression and Anxiety OTHER HISTORY: Positive Autoimmune Disease; Negative Hospitalization, Shingles, Falls, Blood Transfusions, Blood Transfusion Reaction, Anesthesia Reactions, Organ Transplant, Chemotherapy, Radiation Therapy, MRSA, Chicken Pox, Measles, Mumps or Cancer Family History FAMILY HISTORY: Positive Family Cardiac Disorders, Family Gastrointestinal Problems, Family Cancer and Family Surgery; Negative Family Psychiatric Problems, Family Respiratory Disorders or Family Anesthesia Reaction Surgical History SURGICAL: Positive Endocrine Surgery, Thyroidectomy, Abdominal Surgery, Bowel Surgery and Hysterectomy; Negative Cardiac Surgery, Pacemaker, Joint Replacement, Amputation, Open Reduction Internal Fixation, Arthroscopy, Neurologic Surgery, Vasectomy or Organ Transplant Social History SMOKING STATUS: Never smoker SUBSTANCE USE: does not use ED Exam Narrative Physical exam: [General: Obese in mild discomfort but not in any acute distress Head normocephalic HEENT: Eyes pupils are PERRLA EOMs are intact mouth pink moist membranes uvula is midline swallow symmetrical phonation is normal all of the subsystems of HEENT are within acceptable limits Neck is supple nontender Chest equal chest rise nontender to palpation Respiratory: Clear to auscultation no wheezes crackles or rubs CV: Rate rhythm is regular no murmurs rubs or clicks Abdomen is distended secondary to body habitus soft nontender no masses positive bowel sounds all 4 quadrants Back: No CVA tenderness no spinous process tenderness from cervical spine thoracic and lumbar spine Skin: Intact no petechiae rash induration ulceration or crepitus Extremities: Moving all extremity against resistance cap refill less than 2 seconds neurosensory intact. No lower extremity edema Neuro: Awake alert oriented x3 Glascow coma 15 no focal deficits] Course Course Course Narrative: Initial troponin is negative patient has a heart score of 3 will repeat at 3-hour lesli. Initial and delta troponin are negative, patient be given 650 mg of Tylenol for headache, discharged home. Heart score of 3. Patient to follow-up with her primary care doctor Quality Measures none Orders Category Date Time Status EKG (ED ONLY) *Do not use* NOW Care 05/16/25 13:13 Completed IV [Insert IV] NOW Care 05/16/25 13:53 Active EKG (ED Only) Stat Exams 05/16/25 13:13 Draft XR chest 1V Stat Exams 05/16/25 13:12 Completed B-Type Natriuretic Peptide Stat Lab 05/16/25 13:30 Completed CBC Stat Lab 05/16/25 13:30 Completed Comprehensive Metabolic Panel Stat Lab 05/16/25 13:30 Completed Drug Screen,Urine Stat Lab 05/16/25 14:06 Completed LDH (Lactate Dehydrogenase) Stat Lab 05/16/25 13:30 Completed Magnesium Stat Lab 05/16/25 13:30 Completed Partial Thromboplastin Time Stat Lab 05/16/25 13:30 Completed Prothrombin Time with INR Stat Lab 05/16/25 13:30 Completed Troponin I Stat Lab 05/16/25 13:30 Completed Troponin I Stat Lab 05/16/25 16:26 Completed Urinalysis, C/S if Indicated Stat Lab 05/16/25 14:06 Completed Acetaminophen Tab [Tylenol Tab] Med 05/16/25 17:28 Once 650 mg PO X1 ONE Vital Signs Vital signs: Vital Signs Temperature 98.3 F 05/16/25 13:09 Pulse Rate 81 05/16/25 13:09 Respiratory Rate 20 05/16/25 13:09 Blood Pressure 151/87 H 05/16/25 13:09 Pulse Oximetry (%) 90 L 05/16/25 13:09 Oxygen Delivery Method Room Air 05/16/25 13:09 Discharge Plan Plan Patient Disposition: HOME (Self Care) Patient condition on transfer: Stable Prescriptions/Referrals Prescriptions/Med Rec: No Action mirabegron [Myrbetriq] 50 mg tablet extended release 24 hr 50 mg PO QDAY omeprazole 40 mg capsule,delayed release(DR/EC) 40 mg PO QDAY benzonatate 100 mg capsule 100 mg PO TID methimazole 5 mg tablet 5 mg PO QDAY bisacodyl 5 mg tablet 5 mg PO BID lidocaine HCl [Xylocaine] 10 mg/mL (1 %) solution 20 ml Infiltration X1 Qty: 20 0RF triamcinolone acetonide 40 mg/mL suspension 40 mg intra-articular X1 Qty: 1 0RF losartan 25 mg tablet 25 mg PO QDAY naproxen 500 mg tablet 500 mg PO BID Qty: 30 0RF Referrals: Quin Cardoza FNP-C [Primary Care Provider] - In 1 week Problem List Clinical Impression: Chest pain, Hypertension, Headache Patient/Caregiver Discharge Instructions Education Materials: ED Chest Pain, Uncertain Cause, ED High Blood Pressure ... Additional Instructions: Take Tylenol for headache if is worsening of symptoms by the medications return the emergency room immediately for further evaluation. Print Language: Thai Stand Alone Forms: [employer] Award Info., Work/School Release, Patient Portal Info Letter PATEL/MELISSA Supervising Physician PATEL/MELISSA Supervising Physician: Bruce Marlow ENP [facility] Clinical Information Provided by: patient and EMS Medical Records reviewed [facility] and EMS Meds/Rx considered, not ordered None Labs/Rad/Tests considered, not ordered None Chronic Illness/Social Conditions Explain: Hypertension EKG Interpretation EKG #1: EKG Interpretation: EKG performed at 1333 shows a ventricular rate of 76 TN interval 133 QRS of 8 9 QTc of 424 normal sinus rhythm. Labs Labs: interpreted by oh Lab(s) Interpretation(s): CBC shows mild leukocytosis of 12.9 H&H normal no thrombocytopenia Coags within acceptable range CMP shows a BUN 24 no other electrolyte imbalances renal impairment T. bili at 0.5 AST 52 ALT 55 alk phos at 97. Troponin is undetectable BNP 23 Urine is negative for any acute finding UDS is negative. Imaging Imaging interpretation: interpreted by me Imaging Interpretation(s): As interpreted by the radiologist as a mild bronchitis pattern.
[2025-05-16 13:25] VITALS: PULSE 92; RESP 20; O2SAT 98; BMI 31.6
[2025-05-16 13:44] LABS: Basophils # (Auto) 0.0 Thou/mm3 (0.0-0.2); Basophils % (Auto) 0 % (0-2.5); Eosinophils # (Auto) 0.1 Thou/mm3 (0.0-0.5); Eosinophils % (Auto) 1 % (0-10); Hematocrit 45.3 % (36.0-46.0); Hemoglobin 14.4 g/dL (12.0-16.0); Immature Granulocytes Auto 0.04 Thou/mm3 (0.00-0.00); Lymphocytes # (Auto) 4.2 Thou/mm3 (1.0-4.8); Lymphocytes % (Auto) 33 % (10-50); Mean Corpuscular HGB Conc 31.8 g/dl (31.0-37.0); Mean Corpuscular Hemoglobin 29.3 pg (25.0-35.0); Mean Corpuscular Volume 92 fL (80-100); Monocytes # (Auto) 1.8 Thou/mm3 (0.0-0.8); Monocytes % (Auto) 14 % (0-12); Neutrophils # (Auto) 6.6 Thou/mm3 (1.8-7.7); Neutrophils % (Auto) 52 % (37-80); Nucleated Red Blood Cell # 0.00 Thou/mm3 (0.00-0.00); Nucleated Red Blood Cell % 0 /100 WBC (0); Platelet Count 250 Thou/mm3 (140-440); RDW Standard Deviation 43.8 fL (36.4-46.3); Red Blood Count 4.91 Miln/mm3 (4.00-5.20); White Blood Count 12.9 Thou/mm3 (3.6-11.0)
[2025-05-16 13:57] LABS: INR 1.0 (0.9-1.3); Partial Thromboplastin Time 26.3 Seconds (22.0-36.0); Prothrombin Time 11.0 Seconds (9.0-12.2)
[2025-05-16 14:07] LABS: Alanine Aminotransferase 55 U/L (10-49); Albumin, Serum 4.9 gm/dL (3.4-4.8); Albumin/Globulin Ratio 1.8 (1.2-2.2); Alkaline Phosphatase 97 U/L (46-116); Anion Gap 12 (7-16); Aspartate Amino Transferase 52 U/L (0-34); BUN/Creatinine Ratio 30 Ratio (12-20); Bilirubin,Total 0.5 mg/dL (0.3-1.2); Blood Urea Nitrogen 24 mg/dL (9-23); Calcium 9.5 mg/dL (8.3-10.6); Calcium (Corrected) 9.5 mg/dL (8.5-10.1); Carbon Dioxide 27.0 mMol/L (20.0-31.0); Chloride 106 mMol/L (98-107); Creatinine (Component) 0.8 mg/dL (0.6-1.3); Estimated Creatinine Clearance 46.9 mL/min (>60); Globulin 2.8 gm/dL (2.3-3.5); Glucose 106 mg/dL (74-106); LDH (Lactate Dehydrogenase) 236 U/L (120-246); Magnesium 2.3 mg/dL (1.6-2.6); Osmolality,Calculated 292 (275-295); Potassium 3.7 mMol/L (3.4-5.1); Sodium 145 mMol/L (136-145); Total Protein 7.7 gm/dL (5.7-8.2); Troponin I < 0.002 ng/mL (0.0-0.045); eGFR > 60 See Note
[2025-05-16 14:14] LABS: B-Type Natriuretic Peptide 23 pg/mL (0-100)
[2025-05-16 14:16] LABS: Collection Type, Urine Clean Catch
[2025-05-16 14:25] LABS: Bilirubin,Urine Negative (Negative); Blood,Urine Negative (Negative); Clarity,Urine Clear (Clear/Hazy); Color,Urine Lt-Yellow (Lt Yel-Yel); Culture Indicated,Urine Not Indicated; Glucose, Urine Negative (Negative); Ketones,Urine Negative (Negative); Leukocyte Esterase,Urine Negative (Negative); Nitrite,Urine Negative (Negative); PH,Urine 6.5 (5.0-7.0); Protein,Urine Negative (Neg - Trace); RBC,Urine 3 /hpf (0-3); Specific Gravity,Urine 1.009 (1.001-1.035); Squamous Epithelial Cell,Urine 1 /hpf (0-5); Urobilinogen,Urine Negative mg/dL (0.0-1.0); WBC,Urine 3 /hpf (0-5)
[2025-05-16 14:32] LABS: Amphetamine/Methamp Scrn,U Negative (Negative); Barbiturate Screen,Urine Negative (Negative); Benzodiazepines Screen,Urine Negative (Negative); Benzoylecgonine Screen, Ur Negative (Negative); Fentanyl Screen,Urine Negative (Negative); Opiate Screen,Urine Negative (Negative); THC Screen,Urine Negative (Negative)
[2025-05-16 16:46] VITALS: BP 196/81; PULSE 77; RESP 17; TEMP 36.9; O2SAT 95
[2025-05-16 17:05] LABS: Troponin I < 0.020 ng/mL (0.0-0.045)
[2025-05-16 17:48] VITALS: BP 179/68; PULSE 82; RESP 18; TEMP 36.8; O2SAT 95
[2025-05-16] MEDS: ACETAMINOPHEN 325 MG TABLET 650 MG PO (17:48)
== END 2025-05-16 17:54 | disposition home or self-care (01) ==
PROVIDERS: Registered Nurse General Practice; Emergency Provider Family Medicine
DX: R07.9 Chest pain, unspecified (principal); I10 Essential (primary) hypertension; R51.9 Headache, unspecified
CPT/HCPCS: 36415; 71045; 80053; 80307; 81001; 83615; 83735; 83880; 84484; 85025; 85610; 85730; 93005; 99284; A9270

== ENCOUNTER 2025-05-29 20:50 | Emergency (ER) | payer MEDICARE, MEDICAID, SELFPAY ==
[2025-05-29 22:04] VITALS: BP 177/91; PULSE 80; RESP 20; TEMP 36.4; O2SAT 95
--- NOTE | 2025-05-29 22:59 | XR_ITS ---
Examination: CT brain head without contrast. 2-D sagittal coronal reconstructions Date and time of exam: May 29, 2025, 1154 hours COMPARISON: July 17, 2024 INDICATIONS: Headache nasal pain throat pain today CTDI: vol (mGy): 44.8 DLP: (mGycm): 818 Technique: Multiple CT axial sections of the brain have been obtained, 5 mm slice thickness. Contrast has not been administered. 2-D sagittal, coronal reconstructions have been obtained Low dose protocols were performed. One or more of the following dose reduction techniques were used; automated exposure control, adjustment of the mA and/or KV according to patient size, use of iterative reconstruction technique. Findings: No significant ventricular enlargement. Intra-axial or extra-axial hemorrhage density is not seen. No mass effect or midline shift Basal cisterns are not remarkable. Fourth ventricle is midline. Cranial vault intact. Impression: Negative for acute hemorrhage, mass effect or midline shift Mild chronic ethmoid sinusitis Acute right sphenoid sinusitis
--- NOTE | 2025-05-29 22:59 | EKG_ITS ---
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
--- NOTE | 2025-05-29 22:59 | XR_ITS ---
EXAMINATION: Chest PA single view TECHNIQUE: Upright PA chest single view Date and time: May 29, 2025, 1102 hours INDICATIONS: Coughing beginning 5 days ago. FINDINGS: Normal heart size Suspicious for early left perihilar pneumonia IMPRESSION: Suspicious for early left perihilar pneumonia
--- NOTE | 2025-05-29 23:01 | PD.EDRME ---
Rapid Medical Screening Exam E Arrival date/time: 05/29/25 20:50 85F with history of HTN and hyperthyroidism presents to ED with 5 days of cough, R-sided BATES, and some SOB. Chief Complaint: Headache Vital signs: Vital Signs Temperature 97.5 F 05/29/25 22:04 Pulse Rate 80 05/29/25 22:04 Respiratory Rate 20 05/29/25 22:04 Blood Pressure 177/91 H 05/29/25 22:04 Pulse Oximetry (%) 95 05/29/25 22:04 Oxygen Delivery Method Room Air 05/29/25 22:04 Exam: Normal ear exam. Some sinus tenderness Clinical Impression: brain bleed vs URI vs PNA vs sinusitis vs ACS
[2025-05-29 23:30] LABS: Basophils # (Auto) 0.0 Thou/mm3 (0.0-0.2); Basophils % (Auto) 0 % (0-2.5); Eosinophils # (Auto) 0.1 Thou/mm3 (0.0-0.5); Eosinophils % (Auto) 1 % (0-10); Hematocrit 44.0 % (36.0-46.0); Hemoglobin 14.1 g/dL (12.0-16.0); Immature Granulocytes Auto 0.04 Thou/mm3 (0.00-0.00); Lymphocytes # (Auto) 4.6 Thou/mm3 (1.0-4.8); Lymphocytes % (Auto) 35 % (10-50); Mean Corpuscular HGB Conc 32.0 g/dl (31.0-37.0); Mean Corpuscular Hemoglobin 29.6 pg (25.0-35.0); Mean Corpuscular Volume 92 fL (80-100); Monocytes # (Auto) 2.1 Thou/mm3 (0.0-0.8); Monocytes % (Auto) 16 % (0-12); Neutrophils # (Auto) 6.3 Thou/mm3 (1.8-7.7); Neutrophils % (Auto) 48 % (37-80); Nucleated Red Blood Cell # 0.00 Thou/mm3 (0.00-0.00); Nucleated Red Blood Cell % 0 /100 WBC (0); Platelet Count 254 Thou/mm3 (140-440); RDW Standard Deviation 43.5 fL (36.4-46.3); Red Blood Count 4.76 Miln/mm3 (4.00-5.20); White Blood Count 13.2 Thou/mm3 (3.6-11.0)
[2025-05-29 23:41] LABS: Path Review Blood Smear Sent to Pathologist
[2025-05-29 23:50] LABS: B-Type Natriuretic Peptide < 20 pg/mL (0-100)
[2025-05-29 23:51] LABS: Alanine Aminotransferase 37 U/L (10-49); Albumin, Serum 5.0 gm/dL (3.4-4.8); Albumin/Globulin Ratio 1.7 (1.2-2.2); Alkaline Phosphatase 93 U/L (46-116); Anion Gap 10 (7-16); Aspartate Amino Transferase 45 U/L (0-34); BUN/Creatinine Ratio 16 Ratio (12-20); Bilirubin,Total 0.3 mg/dL (0.3-1.2); Blood Urea Nitrogen 14 mg/dL (9-23); Calcium 9.6 mg/dL (8.3-10.6); Calcium (Corrected) 9.6 mg/dL (8.5-10.1); Carbon Dioxide 28.5 mMol/L (20.0-31.0); Chloride 105 mMol/L (98-107); Creatinine (Component) 0.9 mg/dL (0.6-1.3); Globulin 2.9 gm/dL (2.3-3.5); Glucose 105 mg/dL (74-106); Osmolality,Calculated 285 (275-295); Potassium 3.7 mMol/L (3.4-5.1); Sodium 143 mMol/L (136-145); Total Protein 7.9 gm/dL (5.7-8.2); Troponin I < 0.020 ng/mL (0.0-0.045); eGFR > 60 See Note
--- NOTE | 2025-05-30 00:55 | EDNOTE_ITS ---
ED Headache RME/HPI General Chief Complaint: Headache Stated Complaint: NASAL PAIN, HEADACHE, THROAT PAIN, CONSTIPATION Time Seen by Provider: 05/30/25 00:55 Arrival date/time: 05/29/25 20:50 RME / HPI RME / HPI Narrative: 05/29/25 20:50 85F with history of HTN and hyperthyroidism presents to ED with 5 days of cough, R-sided BATES, and some SOB. Dr. Escobar?s Main ED Evaluation: 85yo female with a history of HTN presents to the ED for complaints of generalized headache and mild cough for the last few days. Patient reports associated right lower rib pain. Denies any fever, chills, N/V, or any other associated symptoms. NKA. Related Data Home Medications ?Medication ?Instructions ?Recorded ?Confirmed losartan 25 mg tablet 25 mg PO QDAY 01/11/2301/04 mirabegron 50 mg tablet,extended 50 mg PO QDAY 4 01/04/25 release 24 hr (Myrbetriq) benzonatate 100 mg capsule 100 mg PO TID 01/04/2501/23 bisacodyl 5 mg tablet 5 mg PO BID 01/04/25 5 methimazole 5 mg tablet 5 mg PO QDAY 01/04/25 omeprazole 40 mg capsule,delayed 40 mg PO QDAY 5 01/04/25 release Previous Rx's ?Medication ?Instructions ?Recorded naproxen 500 mg tablet 500 mg PO BID #30 tabs 07/27 doxycycline hyclate 100 mg capsule 100 mg PO BID #14 c aps 05/30/25 Allergies Allergy/AdvReac Type Severity Reaction Status Date / Time No Known Allergies Allergy Verified 05/29/25 20:51 Review of Systems Review of Systems Systems Reviewed: All systems reviewed, normal except as documented Past Medical History Past Medical History NEUROLOGIC: Negative Neurological Disorders or Seizures CARDIAC: Positive Hypercholesterolemia and Hypertension; Negative Cardiac Disorders, Congestive Heart Failure, Edema, Cellulitis or Varicose Veins RESPIRATORY: Negative Chronic Obstructive Pulmonary Disease (COPD), Asthma, Tuberculosis, Sleep Apnea, Smoking, Smoking Cessation Counseling or Smoking Exposure GASTROINTESTINAL: Positive Gastrointestinal Disorders, Gall Bladder Disease, Colitis, Hemorrhoids and Gastroesophageal Reflux Disease; Negative Hepatitis GENITOURINARY: Negative Genitourinary Disorders or Renal Disease REPRODUCTIVE: Positive Previous Pregnancies MUSCULOSKELETAL: Positive Musculoskeletal Disorders, Arthritis and Degenerative Disk Disease; Negative Carpal Tunnel Syndrome ENT: Positive Cataracts ENDOCRINE: Positive Endocrine Disorders, Hyperthyroidism and Hypothyroidism; Negative Diabetes Mellitus Type 1 or Diabetes Mellitus Type 2 HEMATOLOGIC: Negative Blood Disorders or Sickle Cell Disease PSYCHO/SOCIAL: Positive Depression and Anxiety OTHER HISTORY: Positive Autoimmune Disease; Negative Hospitalization, Shingles, Falls, Blood Transfusions, Blood Transfusion Reaction, Anesthesia Reactions, Organ Transplant, Chemotherapy, Radiation Therapy, MRSA, Chicken Pox, Measles, Mumps or Cancer Family History FAMILY HISTORY: Positive Family Cardiac Disorders, Family Gastrointestinal Problems, Family Cancer and Family Surgery; Negative Family Psychiatric Problems, Family Respiratory Disorders or Family Anesthesia Reaction Surgical History SURGICAL: Positive Endocrine Surgery, Thyroidectomy, Abdominal Surgery, Bowel Surgery and Hysterectomy; Negative Cardiac Surgery, Pacemaker, Joint Replacement, Amputation, Open Reduct ion Internal Fixation, Arthroscopy, Neurologic Surgery, Vasectomy or Organ Transplant Social History SMOKING STATUS: Never smoker SUBSTANCE USE: does not use ED Exam Narrative Physical exam: Generally patient is alert no obvious distress, heart regular rate and rhythm, lungs clear to auscultation equal bilaterally, abdomen soft bowel sounds present nondistended mild diffuse tenderness without rebound, neurologic exam Fady Coma Scale is 15 without focal motor deficit. No ataxia. Course Quality Measures none Orders Category Date Time Status Bedside COVID-19 Antigen Test NOW Care 05/29/25 22:37 Active EKG (ED ONLY) *Do not use* NOW Care 05/29/25 23:[address] head/brain wo con Stat Exams 05/29/25 22:59 Completed EKG (ED Only) Stat Exams 05/29/25 22:59 Draft XR chest 1V portable Stat Exams 05/29/25 22:59 Completed B-Type Natriuretic Peptide Stat Lab 05/29/25 23:09 Completed CBC Stat Lab 05/29/25 23:09 Completed Comprehensive Metabolic Panel Stat Lab 05/29/25 23:09 Completed Path Review Blood Smear Stat Lab 05/29/25 23:09 Completed Troponin I Stat Lab 05/29/25 23:09 Completed Vital Signs Vital signs: Vital Signs Temperature 97.5 F 05/29/25 22:04 Pulse Rate 80 05/29/25 22:04 Respiratory Rate 20 05/29/25 22:04 Blood Pressure 177/91 H 05/29/25 22:04 Pulse Oximetry (%) 95 05/29/25 22:04 Oxygen Delivery Method Room Air 05/29/25 22:04 Headache MDM Narrative MDM Narrative:: Scribe Attestation: 05/30/25 Patsy Tracey am scribing for and in the presence of Dr. Escobar. EKG is nonischemic. Lab work is essentially unremarkable. Chest x-ray shows an early right perihilar infiltrate. COVID was negative. Patient be started on doxycycline to be taken as prescribed. Follow-up with her doctor. Return to ER as needed or if condition worsens. Patient data External records reviewed:: [facility] previous records (Per chart review, patient was seen here on 05/16/25 for chest pain.) Clinical information provided by:: patient Social determinants that could affect healthcare access:: none Patient has the following chronic illnesses:: HTN How is presenting disease/condition affected by chronic disease/condition?: exacerbated by Evaluation data The following diagnostics were reviewed and interpreted by me:: lab results, radiology exam(s) and EKG tracing(s) Lab and/or radiology exams considered but not ordered:: none Interpretation Summary: [facility] Signed Patient: [employer]HAT [employer]. Record#: [id number] Birthdate: 1940 Age/Sex: 85 / F Location: [facility] Attending Dr: Ordering Physician: Andrew Howard PA-C Date of Service: 05/29/25 Procedure(s): XR chest 1V portable Accession Number(s): [id number] cc: Brandon Higgins MD; Andrew Howard PA-C~ EXAMINATION: Chest PA single view TECHNIQUE: Upright PA chest single view Date and time: May 29, 2025, 1102 hours INDICATIONS: Coughing beginning 5 days ago. FINDINGS: Normal heart size Suspicious for early left perihilar pneumonia IMPRESSION: Suspicious for early left perihilar pneumonia Dictated By: Brandon Higgins MD Signed By: <Electronically signed by Brandon Higgins MD in OV> 05/29/25 2328 [facility] Signed [facility] Record#: [id number] Birthdate: 1940 Age/Sex: 85 / F [facility]: Ordering Physician: Andrew Howard PA-C Date of Service: 05/29/25 Procedure(s): CT head/brain wo con Accession Number(s): [id number] cc: Brandon Higgins MD; Andrew Howard PA-C~ Examination: CT brain head without contrast. 2-D sagittal coronal reconstructions Date and time of exam: May 29, 2025, 1154 hours COMPARISON: July 17, 2024 INDICATIONS: Headache nasal pain throat pain today CTDI: vol (mGy): 44.8 DLP: (mGycm): 818 Technique: Multiple CT axial sections of the brain have been obtained, 5 mm slice thickness. Contrast has not been administered. 2-D sagittal, coronal reconstructions have been obtained Low dose protocols were performed. One or more of the following dose reduction techniques were used; automated exposure control, adjustment of the mA and/or KV according to patient size, use of iterative reconstruction technique. Findings: No significant ventricular enlargement. Intra-axial or extra-axial hemorrhage density is not seen. No mass effect or midline shift Basal cisterns are not remarkable. Fourth ventricle is midline. Cranial vault intact. Impression: Negative for acute hemorrhage, mass effect or midline shift Mild chronic ethmoid sinusitis Acute right sphenoid sinusitis Dictated By: Brandon Higgins MD Signed By: <Electronically signed by Brandon Higgins MD in OV> 05/29/25 3138 Medications / Prescriptions Medications or Prescriptions considered but not ordered:: none Medication administrations:: see above, if any Consultations Consultation(s) initiated? (list below): No Diagnosis Differential diagnosis headache: other (See MDM) Most likely diagnosis given after review of the tests above:: see clinical impression below Admission Indicated Admission indicated?: not indicated Admission Request Was there a request for admission?: No Disposition Plan Disposition Plan: Discharge Discharge Attestation Discharge Attestation: The patient and all family members were given an opportunity to ask questions and understood the discharge instructions. Discharge instructions specifically effects, indications for sooner follow up or return to the emergency department, and the expected course of current diagnosis. Patient condition: Stable Discharge Plan Plan Patient Disposition: HOME (Self Care) Prescriptions/Referrals Prescriptions/Med Rec: New doxycycline hyclate 100 mg capsule 100 mg PO BID Qty: 14 0RF No Action mirabegron [Myrbetriq] 50 mg tablet extended release 24 hr 50 mg PO QDAY omeprazole 40 mg capsule,delayed release(DR/EC) 40 mg PO QDAY benzonatate 100 mg capsule 100 mg PO TID methimazole 5 mg tablet 5 mg PO QDAY bisacodyl 5 mg tablet 5 mg PO BID lidocaine HCl [Xylocaine] 10 mg/mL (1 %) solution 20 ml Infiltration X1 Qty: 20 0RF triamcinolone acetonide 40 mg/mL suspension 40 mg intra-articular X1 Qty: 1 0RF losartan 25 mg tablet 25 mg PO QDAY naproxen 500 mg tablet 500 mg PO BID Qty: 30 0RF Referrals: Quin Cardoza FNP-C [Primary Care Provider] - In 1 week Problem List Clinical Impression: Pneumonia Patient/Caregiver Discharge Instructions Education Materials: ED Pneumonia (Adult) Additional Instructions: Take the antibiotic as prescribed. Continue current medications. Follow-up with your doctor. Return to ER as needed or if condition worsens. Print Language: Arabic Stand Alone Forms: [employer] Award Info., Patient Portal Info Letter
[2025-05-30 01:07] VITALS: BP 167/80; PULSE 89; RESP 17; TEMP 36.4; O2SAT 95
== END 2025-05-30 01:27 | disposition home or self-care (01) ==
PROVIDERS: Physician Assistant; Emergency Provider Emergency Medicine
DX: J18.9 Pneumonia, unspecified organism (principal); J01.30 Acute sphenoidal sinusitis, unspecified; I10 Essential (primary) hypertension; E05.90 Thyrotoxicosis, unspecified without thyrotoxic crisis or storm; J32.2 Chronic ethmoidal sinusitis; K59.00 Constipation, unspecified
CPT/HCPCS: 36415; 70450; 71045; 80053; 83880; 84484; 85025; 87811; 93005; 99283

== ENCOUNTER → 2025-06-17 | Outpatient (CLI) | payer MEDICARE, MEDICAID, SELFPAY ==
[2025-06-14 11:01] LABS: Basophils # (Auto) 0.0 Thou/mm3 (0.0-0.2); Basophils % (Auto) 1 % (0-2.5); Eosinophils # (Auto) 0.2 Thou/mm3 (0.0-0.5); Eosinophils % (Auto) 2 % (0-10); Hematocrit 44.7 % (36.0-46.0); Hemoglobin 14.3 g/dL (12.0-16.0); Immature Granulocytes Auto 0.03 Thou/mm3 (0.00-0.00); Lymphocytes # (Auto) 3.8 Thou/mm3 (1.0-4.8); Lymphocytes % (Auto) 44 % (10-50); Mean Corpuscular HGB Conc 32.0 g/dl (31.0-37.0); Mean Corpuscular Hemoglobin 29.1 pg (25.0-35.0); Mean Corpuscular Volume 91 fL (80-100); Monocytes # (Auto) 1.5 Thou/mm3 (0.0-0.8); Monocytes % (Auto) 17 % (0-12); Neutrophils # (Auto) 3.1 Thou/mm3 (1.8-7.7); Neutrophils % (Auto) 36 % (37-80); Nucleated Red Blood Cell # 0.00 Thou/mm3 (0.00-0.00); Nucleated Red Blood Cell % 0 /100 WBC (0); Platelet Count 237 Thou/mm3 (140-440); RDW Standard Deviation 43.6 fL (36.4-46.3); Red Blood Count 4.92 Miln/mm3 (4.00-5.20); White Blood Count 8.6 Thou/mm3 (3.6-11.0)
[2025-06-14 11:26] LABS: INR 1.0 (0.9-1.3); Partial Thromboplastin Time 27.1 Seconds (22.0-36.0); Prothrombin Time 10.9 Seconds (9.0-12.2)
--- NOTE | 2025-06-17 09:30 | XR_ITS ---
EXAMINATION: Thyroid sonography TECHNIQUE: Grayscale sonographic images thyroid lobes Date and time: June 17, 2025, 1008 hours INDICATIONS: History of thyroid nodules, partial left thyroidectomy. FINDINGS: Right thyroid 5.3 cm Lower pole calcified nodule 6 x 5 mm Left thyroid 3.8 cm No solid nodules IMPRESSION: Calcified lower pole right thyroid nodule 6 x 5 x 5 mm
--- NOTE | 2025-06-17 09:30 | XR_ITS ---
Examination: Ultrasound-guided fine needle percutaneous aspiration thyroid nodule, right thyroid nodule. Thyroid sonography, limited Exam date and time: June 17, 2025, 1015 hours INDICATIONS: Right thyroid nodule on sonogram today. Technique: A timeout was completed verifying correct patient, procedure, site, positioning and special equipment if applicable. The patient was placed in supine position for the thyroid fine needle percutaneous aspiration The patient's right neck was prepped and draped in sterile fashion. Maximum barrier sterile technique, hand hygiene, ultrasound sterile technique. 1% lidocaine was used to anesthetize the skin and subcutaneous tissues to the patient's right thyroid nodule. Multiple fine needle aspirations were performed and multiple thyroid specimens placed in preservative according to the [facility] protocol. Specimens appears satisfactory. The attending radiologist was present for the entire procedure. Estimated blood loss 3 cc. The patient tolerated the procedure well and there were no complications. Impression: Successful ultrasound-guided fine-needle percutaneous aspiration thyroid nodule, right thyroid nodule.
== END | disposition home or self-care (01) ==
LOC: SDIM 09:13
PROVIDERS: Radiology Diagnostic Radiology; Referring Provider Student in an Organized Health Care Education/Training Program; Visit Provider Student in an Organized Health Care Education/Training Program
DX: E04.1 Nontoxic single thyroid nodule (principal)
CPT/HCPCS: 36415; 76536; 85025; 85610; 85730

== ENCOUNTER 2025-06-18 14:03 | Emergency (ER) | payer MEDICARE, MEDICAID, SELFPAY ==
[2025-06-18 14:24] VITALS: BP 139/81; PULSE 84; RESP 20; TEMP 36.6; O2SAT 94; BMI 32.8
--- NOTE | 2025-06-18 14:42 | EKG_ITS ---
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
--- NOTE | 2025-06-18 14:43 | XR_ITS ---
EXAMINATION: PA chest single view TECHNIQUE: Upright PA chest single view Date and time: June 18, 2025, 1457 hours, comparison May 29, 2025 INDICATIONS: Shortness of breath chest pain today. FINDINGS: Normal heart size No pneumonia or pulmonary edema. Prominent osteopenia IMPRESSION: No active disease
--- NOTE | 2025-06-18 14:58 | PD.EDSOB ---
ED SOB =RME/HPI General Chief Complaint: Shortness of Breath/Dyspnea Stated Complaint: SOB, SENT BY PROVIDER AT [facility] Time Seen by Provider: 06/18/25 14:36 Arrival date/time: 06/18/25 14:03 RME / HPI RME / HPI Narrative: CC: Shortness of breath Patient is a 85-year-old female with a past medical history of hypertension, hyperlipidemia, and concern for thyroid problems w/ recent biopsy (patient unsure hypo or hyper) who presented to the emergency room with a chief complaint of shortness of breath who was sent to the hospital by his provider. Patient states she has been having a cough and shortness of breath for over 2 weeks since previous ER visit of May 30, 2025 which patient was discharged with doxycycline and diagnosis of pneumonia. Patient is still complaining of respiratory symptoms and pain at the back of her throat. Patient denied history of valley fever. Denied history of flu or COVID. Patient completed course of antibiotics. Increased pain with inspiration. -complained later of maxillary pain and nasal pain Related Data Home Medications ?Medication ?Instructions ?Recorded ?Confirmed losartan 25 mg tablet 25 mg PO QDAY 01/11/23 01/04/25 mirabegron 50 mg tablet,extended 50 mg PO QDAY 01/06/24 01/04/25 release 24 hr (Myrbetriq) benzonatate 100 mg capsule 100 mg PO TID 01/04/25 01/04/25 bisacodyl 5 mg tablet 5 mg PO BID 01/04/25 01/04/25 methimazole 5 mg tablet 5 mg PO QDAY 01/04/25 01/04/25 omeprazole 40 mg capsule,delayed 40 mg PO QDAY 01/04/25 01/04/25 release Previous Rx's ?Medication ?Instructions ?Recorded naproxen 500 mg tablet 500 mg PO BID #30 tabs 07/27/24 amoxicillin 875 mg-potassium 1 tab PO BID sinusitis 5 days #10 06/18/25 clavulanate 125 mg tablet tabs fluticasone furoate 50 1 inh inhalation QDAY 7 days #30 ea 06/18/25 mcg/actuation blister powder for inhalation polyethylene glycol 3350 17 4 g PO QDAY constipation 1 month 06/18/25 gram/dose oral powder (Miralax) #120 grams Allergies Allergy/AdvReac Type Severity Reaction Status Date / Time No Known Allergies Allergy Verified 06/18/25 14:10 Review of Systems Review of Systems Narrative Review of Systems: General appearance: NO weight change, NO fatigue, NO weakness, NO fever, NO chills, NO night sweats, No cough Skin: NO rash, NO itching, NO sores, NO moles HEENT: NO Trauma, NO nausea, NO vomiting, NO visual changes, NO blurry vision, NO double vision, NO tinnitus, NO vertigo, NO ear discharge, NO rhinorrhea, NO stuffiness, NO sneezing, NO allergy, NO epistaxis. NO Hoarseness, NO sore throat, NO swollen neck. Cardiac: NO Palpitations, NO dyspnea on exertion, NO orthopnea, NO paroxysmal nocturnal dyspnea, NO edema Respiratory: YES Shortness of Breath, Pain with deep inspiration, NO Wheezing, NO Cough, NO Sputum, NO hemoptysis GI:NO appetite, NO nausea, NO vomiting, NO dysphagia, NO changes in bowel frequency, NO stool color, NO diarrhea, NO constipation, NO hemetemesis, NO hemorrhoids, NO melena, NO hematechezia, NO abdominal pain, NO jaundice Renal: NO frequency, NO hesitancy, NO urgency, NO hematuria, NO nocturia, NO incontinence MSK: NO muscle weakness, NO gout, NO arthritis, NO muscle stiffness Neuro: NO headaches, NO tremors, NO weakness, NO paralysis, NO seizures, NO loss of consciousness, NO numbness. Hem: NO anemia, NO easy bruising/bleeding, NO petechiae, NO purpura Endo: NO heat/cold intolerance, NO excessive sweating, NO polyuria, NO polydipsia, NO polyphagia, NO thyroid problems, NO diabetes Pysch: NO mood, NO anxiety, NO depression ED Exam Narrative Physical exam: General Appearance: Alert & Oriented X3, well-nourished female who is lying in bed in no acute distress HEENT: Skull symmetrical and atraumatic. Conjunctivae pin and moist. Pupils equal, round, reactive to light and accommodation (PERRL). External ear without lesion or discharge. Straight, nares patient, mucosa pink, no discharge. Cardio: Normal Rate and Rhythm with S1 and S2 heart sounds. No murmurs or extra heart sounds auscultated. No bruits on carotid auscultation. No peripheral edema or cyanosis. Lungs: Symmetric with good expansion. Chest and back non-tender. Breath sounds vesicular without crackles, wheezing or rhonchi Abdomen: Non-tender, Non-distended, Normal Reactive Bowel Sounds Neuro: Alert, cooperative, oriented to person, place, and time. Speech clear. CN grossly intact. Upper motor strength 5/5 and Lower motor strength 5/5. Sensation intact. Course Quality Measures none Orders Category Date Time Status Bedside COVID-19 Antigen Test NOW Care 06/18/25 14:44 Completed EKG (ED ONLY) *Do not use* NOW Care 06/18/25 14:42 Completed EKG (ED Only) Stat Exams 06/18/25 14:42 Draft XR chest 1V portable Stat Exams 06/18/25 14:43 Completed B-Type Natriuretic Peptide Stat Lab 06/18/25 14:51 Completed CBC Stat Lab 06/18/25 14:51 Completed Cocci Serology IgM with reflex to IgG [Cocci Serology, Lab 06/18/25 14:51 Received Unk History] Stat Comprehensive Metabolic Panel Stat Lab 06/18/25 14:51 Completed FLU A&B [Influenza A & B Rapid Panel] Stat Lab 06/18/25 15:16 Completed Magnesium Stat Lab 06/18/25 14:51 Completed Partial Thromboplastin Time Stat Lab 06/18/25 14:51 Completed Prothrombin Time with INR Stat Lab 06/18/25 14:51 Completed Strep A Rapid Stat Lab 06/18/25 15:16 Completed Troponin I Stat Lab 06/18/25 14:51 Completed Urinalysis, C/S if Indicated Stat Lab 06/18/25 15:15 Completed ACETAMINOPHEN w/COD 300-30 [Tylenol w/Cod #3] Med 06/18/25 16:11 Discontinued 1 tab PO X1 ONE Ondansetron Odt [Zofran Odt] Med 06/18/25 16:11 Discontinued 4 mg PO X1 ONE predniSONE Med 06/18/25 16:11 Discontinued 20 mg PO X1 ONE Vital Signs Vital signs: Vital Signs Temperature 97.8 F 06/18/25 14:24 Pulse Rate 84 06/18/25 14:24 Respiratory Rate 20 06/18/25 14:24 Blood Pressure 139/81 H 06/18/25 14:24 Pulse Oximetry (%) 94 L 06/18/25 14:24 Oxygen Delivery Method Room Air 06/18/25 14:24 Shortness of Breath / Dyspnea Patient data External records reviewed:: [facility] previous records Clinical information provided by:: patient Social determinants that could affect healthcare access:: none Patient has the following chronic illnesses:: hypertension, hyperlipidemia, and concern for thyroid problems w/ recent biopsy How is presenting disease/condition affected by chronic disease/condition?: uneffected by (HTN HLD) Evaluation data The following diagnostics were reviewed and interpreted by me:: lab results, radiology exam(s) and EKG tracing(s) Lab and/or radiology exams considered but not ordered:: None Interpretation Summary: Patient is a 85 year old female with a past medical history of hypertension and Hyperlipidemia who presented to the emergency room with chief complain of shortness of breath, recently treated in the emergency room for pneumonia and complaining of pain to maxillary sinus. No leukocytosis noted on CBC. Sodium and potassium within normal limits NO YANET noted. UA negative. chest x-ray no acute process. Nasal turbinate appear inflamed bilaterally. Given unremarkable labs and negative images for acute process, sinusitis likely diagnosis. #Sinusitis - The patient's plan was discussed with attending Dr. Mohini Muñiz MD PGY2 Internal Medicine Medications / Prescriptions Medications or Prescriptions considered but not ordered:: none Medication administrations:: Medication Administration History Discontinued Medications Acetaminophen/Codeine Phosphate (Acetaminophen W/Cod 300-30 Tablet) 1 tab PO X1 ONE Stop: 06/18/25 16:12 Last Admin: 06/18/25 16:40 Dose: 1 tab Documented By: Ondansetron HCl (Ondansetron Odt 4 Mg Tabrap) 4 mg PO X1 ONE; Protocol Stop: 06/18/25 16:12 Last Admin: 06/18/25 16:40 Dose: 4 mg Documented By: Prednisone (Prednisone 20 Mg Tablet) 20 mg PO X1 ONE Stop: 06/18/25 16:12 Last Admin: 06/18/25 16:40 Dose: 20 mg Documented By: same as above Consultations Consultation(s) initiated? (list below): No Diagnosis Shortness of Breath Differential Diagnosis: acute exacerbation of chronic obstructive airways disease, community acquired pneumonia and other (sinusitis ) Most likely diagnosis given after review of the tests above:: Patient is a 85 year old female with a past medical history of hypertension and Hyperlipidemia who presented to the emergency room with chief complain of shortness of breath, recently treated in the emergency room for pneumonia and complaining of pain to maxillary sinus. No leukocytosis noted on CBC. Sodium and potassium within normal limits NO YANET noted. UA negative. chest x-ray no acute process. Nasal turbinate appear inflamed bilaterally. Given unremarkable labs and negative images for acute process, sinusitis likely diagnosis. #Sinusitis - The patient's plan was discussed with attending Dr. Mohini Muñiz MD PGY2 Internal Medicine Admission Indicated Admission indicated?: not indicated Explain why admission is indicated or not indicated:: No signs of SIRS, no hypoxia noted, not pneumonia noted on chest x-ray Admission Request Was there a request for admission?: No Disposition Plan Disposition Plan: Discharge Discharge Attestation Discharge Attestation: The patient and all family members were given an opportunity to ask questions and understood the discharge instructions. Discharge instructions specifically effects, indications for sooner follow up or return to the emergency department, and the expected course of current diagnosis. Patient condition: Stable Discharge Plan Plan Patient Disposition: HOME (Self Care) Patient condition on transfer: Stable Health Concerns: Instructions: -You have been diagnosed with sinusitis. -Please take amoxicillin-clavulanate 875-125 mg twice daily for the next 5 days. -Please take Miralax to hep with regular bowel movements. -Please follow up with your primary care provider within one week of discharge -If your symptoms worsen,please seek immediate medical attention and return to your nearest emergency room -If you do not have a primary care provider, [facility] [address], [place] [address], Prescriptions/Referrals Prescriptions/Med Rec: New amoxicillin-pot clavulanate 875-125 mg tablet 1 tab PO BID 5 Days Qty: 10 0RF polyethylene glycol 3350 [Miralax] 17 gram/dose powder 4 g PO QDAY 30 Days Qty: 120 0RF fluticasone furoate 50 mcg/actuation blister with device 1 inh inhalation QDAY 7 Days Qty: 30 0RF Continued mirabegron [Myrbetriq] 50 mg tablet extended release 24 hr 50 mg PO QDAY omeprazole 40 mg capsule,delayed release(DR/EC) 40 mg PO QDAY benzonatate 100 mg capsule 100 mg PO TID methimazole 5 mg tablet 5 mg PO QDAY bisacodyl 5 mg tablet 5 mg PO BID lidocaine HCl [Xylocaine] 10 mg/mL (1 %) solution 20 ml Infiltration X1 Qty: 20 0RF triamcinolone acetonide 40 mg/mL suspension 40 mg intra-articular X1 Qty: 1 0RF losartan 25 mg tablet 25 mg PO QDAY naproxen 500 mg tablet 500 mg PO BID Qty: 30 0RF Discontinued doxycycline hyclate 100 mg capsule 100 mg PO BID Qty: 14 0RF Referrals: No Primary/Family,Physician [Primary Care Provider] - In 1 week Problem List Clinical Impression: Sinusitis Patient/Caregiver Discharge Instructions Education Materials: ED Sinusitis (Antibiotic Treatment) Print Language: Faroese Stand Alone Forms: Renee Award Info., Patient Portal Info Letter
[2025-06-18 15:14] LABS: B-Type Natriuretic Peptide 21 pg/mL (0-100)
[2025-06-18 15:16] LABS: INR 1.0 (0.9-1.3); Partial Thromboplastin Time 27.3 Seconds (22.0-36.0); Prothrombin Time 10.9 Seconds (9.0-12.2)
[2025-06-18 15:17] LABS: Alanine Aminotransferase 32 U/L (10-49); Albumin, Serum 4.9 gm/dL (3.4-4.8); Albumin/Globulin Ratio 2.0 (1.2-2.2); Alkaline Phosphatase 84 U/L (46-116); Anion Gap 10 (7-16); Aspartate Amino Transferase 45 U/L (0-34); BUN/Creatinine Ratio 24 Ratio (12-20); Bilirubin,Total 0.3 mg/dL (0.3-1.2); Blood Urea Nitrogen 22 mg/dL (9-23); Calcium 9.3 mg/dL (8.3-10.6); Calcium (Corrected) 9.3 mg/dL (8.5-10.1); Carbon Dioxide 27.9 mMol/L (20.0-31.0); Chloride 107 mMol/L (98-107); Creatinine (Component) 0.9 mg/dL (0.6-1.3); Estimated Creatinine Clearance 39.0 mL/min (>60); Globulin 2.4 gm/dL (2.3-3.5); Glucose 95 mg/dL (74-106); Magnesium 2.2 mg/dL (1.6-2.6); Osmolality,Calculated 292 (275-295); Potassium 4.0 mMol/L (3.4-5.1); Sodium 145 mMol/L (136-145); Total Protein 7.3 gm/dL (5.7-8.2); Troponin I < 0.020 ng/mL (0.0-0.045); eGFR > 60 See Note
[2025-06-18 15:18] LABS: Hematocrit 44.4 % (36.0-46.0); Mean Corpuscular Volume 93 fL (80-100); Monocytes % (Auto) 18 % (0-12); Nucleated Red Blood Cell # 0.00 Thou/mm3 (0.00-0.00); Nucleated Red Blood Cell % 0 /100 WBC (0); Red Blood Count 4.80 Miln/mm3 (4.00-5.20)
[2025-06-18 15:20] LABS: Basophils # (Auto) 0.0 Thou/mm3 (0.0-0.2); Basophils % (Auto) 0 % (0-2.5); Eosinophils # (Auto) 0.2 Thou/mm3 (0.0-0.5); Eosinophils % (Auto) 2 % (0-10); Hemoglobin 14.4 g/dL (12.0-16.0); Immature Granulocytes Auto 0.02 Thou/mm3 (0.00-0.00); Lymphocytes # (Auto) 3.8 Thou/mm3 (1.0-4.8); Lymphocytes % (Auto) 40 % (10-50); Mean Corpuscular HGB Conc 32.4 g/dl (31.0-37.0); Mean Corpuscular Hemoglobin 30.0 pg (25.0-35.0); Monocytes # (Auto) 1.7 Thou/mm3 (0.0-0.8); Neutrophils # (Auto) 3.7 Thou/mm3 (1.8-7.7); Neutrophils % (Auto) 39 % (37-80); Platelet Count 254 Thou/mm3 (140-440); RDW Standard Deviation 44.5 fL (36.4-46.3); White Blood Count 9.5 Thou/mm3 (3.6-11.0)
[2025-06-18 15:35] LABS: Collection Type, Urine Clean Catch
[2025-06-18 15:41] LABS: Bilirubin,Urine Negative (Negative); Blood,Urine Negative (Negative); Clarity,Urine Clear (Clear/Hazy); Color,Urine Lt-Yellow (Lt Yel-Yel); Culture Indicated,Urine Not Indicated; Glucose, Urine Negative (Negative); Ketones,Urine 1+ (Negative); Leukocyte Esterase,Urine Negative (Negative); Nitrite,Urine Negative (Negative); PH,Urine 6.0 (5.0-7.0); Protein,Urine Negative (Neg - Trace); RBC,Urine 2 /hpf (0-3); Specific Gravity,Urine 1.016 (1.001-1.035); Squamous Epithelial Cell,Urine 1 /hpf (0-5); Urobilinogen,Urine Negative mg/dL (0.0-1.0); WBC,Urine 1 /hpf (0-5)
[2025-06-18 16:14] LABS: Influenza A Ag Negative; Influenza B Ag Negative; Strep A Rapid Negative (Negative)
[2025-06-18] MEDS: ACETAMINOPHEN w/COD 300-30 TABLET 1 TAB PO (16:40)
[2025-06-18] MEDS: ONDANSETRON ODT 4 MG TABRAP PO (16:40)
[2025-06-18 16:43] VITALS: BP 160/84; PULSE 85; RESP 17; TEMP 36.7; O2SAT 95
[2025-06-19 14:12] LABS: Cocci Serology, IgM Negative (Negative)
[2025-06-20 10:16] LABS: Cocci Serology, IgG Negative (Negative)
== END 2025-06-18 17:44 | disposition home or self-care (01) ==
PROVIDERS: Emergency Provider Emergency Medicine
DX: J32.9 Chronic sinusitis, unspecified (principal); E78.5 Hyperlipidemia, unspecified; I10 Essential (primary) hypertension
CPT/HCPCS: 36415; 71045; 80053; 81001; 83735; 83880; 84484; 85025; 85610; 85730; 86331; 86635; 87502; 87635; 87651; 93005; 99283; J7512; Q0162; A9270

== ENCOUNTER → 2025-07-05 | Outpatient (BNVA) | payer MEDICARE, MEDICAID, SELFPAY | END | disposition home or self-care (01) | PROVIDERS: PCP Nurse Practitioner Family; Referring Provider Nurse Practitioner Family; Visit Provider Urology | DX: N30.10 Interstitial cystitis (chronic) without hematuria (principal); K59.00 Constipation, unspecified; Z87.440 Personal history of urinary (tract) infections; I10 Essential (primary) hypertension | CPT/HCPCS: 81003; 99212; G0463 ==

== ENCOUNTER → 2025-07-09 | Outpatient (CLI) | payer MEDICARE, MEDICAID, SELFPAY ==
[2025-07-09 13:30] LABS: Basophils # (Auto) 0.0 Thou/mm3 (0.0-0.2); Basophils % (Auto) 1 % (0-2.5); Eosinophils # (Auto) 0.4 Thou/mm3 (0.0-0.5); Eosinophils % (Auto) 5 % (0-10); Hematocrit 44.3 % (36.0-46.0); Hemoglobin 13.9 g/dL (12.0-16.0); Immature Granulocytes Auto 0.02 Thou/mm3 (0.00-0.00); Lymphocytes # (Auto) 3.0 Thou/mm3 (1.0-4.8); Lymphocytes % (Auto) 35 % (10-50); Mean Corpuscular HGB Conc 31.4 g/dl (31.0-37.0); Mean Corpuscular Hemoglobin 29.2 pg (25.0-35.0); Mean Corpuscular Volume 93 fL (80-100); Monocytes # (Auto) 1.8 Thou/mm3 (0.0-0.8); Monocytes % (Auto) 20 % (0-12); Neutrophils # (Auto) 3.4 Thou/mm3 (1.8-7.7); Neutrophils % (Auto) 39 % (37-80); Nucleated Red Blood Cell # 0.00 Thou/mm3 (0.00-0.00); Nucleated Red Blood Cell % 0 /100 WBC (0); Platelet Count 221 Thou/mm3 (140-440); RDW Standard Deviation 45.6 fL (36.4-46.3); Red Blood Count 4.76 Miln/mm3 (4.00-5.20); White Blood Count 8.6 Thou/mm3 (3.6-11.0)
[2025-07-09 13:38] LABS: Glucose Estimated Average 120 mg/dL (80-131); Hemoglobin A1C 5.8 % Hgb (4.8-6.0)
[2025-07-09 13:50] LABS: Alanine Aminotransferase 42 U/L (10-49); Albumin, Serum 5.1 gm/dL (3.4-4.8); Albumin/Globulin Ratio 2.0 (1.2-2.2); Alkaline Phosphatase 94 U/L (46-116); Anion Gap 12 (7-16); Aspartate Amino Transferase 58 U/L (0-34); BUN/Creatinine Ratio 20 Ratio (12-20); Bilirubin,Total 0.5 mg/dL (0.3-1.2); Blood Urea Nitrogen 16 mg/dL (9-23); Calcium 10.2 mg/dL (8.3-10.6); Calcium (Corrected) 10.2 mg/dL (8.5-10.1); Carbon Dioxide 29.0 mMol/L (20.0-31.0); Cardiac Risk Estimate 3.4 RATIO (3.7-5.6); Chloride 104 mMol/L (98-107); Cholesterol 131 mg/dL (132-200); Creatinine (Component) 0.8 mg/dL (0.6-1.3); Globulin 2.5 gm/dL (2.3-3.5); Glucose 109 mg/dL (74-106); HDL Cholesterol 39 mg/dL (40-60); LDL Cholesterol,Calculated 63 mg/dL (0-130); Osmolality,Calculated 290 (275-295); Potassium 4.4 mMol/L (3.4-5.1); Sodium 145 mMol/L (136-145); Thyroid Stimulating Hormone 4.85 uIU/mL (0.55-4.78); Total Protein 7.6 gm/dL (5.7-8.2); Triglycerides 144 mg/dL (30-150); eGFR > 60 See Note
== END | disposition home or self-care (01) ==
LOC: COPL 12:14
PROVIDERS: PCP Internal Medicine; Referring Provider Internal Medicine; Visit Provider Internal Medicine
DX: I10 Essential (primary) hypertension (principal); J32.0 Chronic maxillary sinusitis; K21.9 Gastro-esophageal reflux disease without esophagitis; K52.9 Noninfective gastroenteritis and colitis, unspecified; K59.09 Other constipation; M19.90 Unspecified osteoarthritis, unspecified site; R00.2 Palpitations; R06.02 Shortness of breath; R39.9 Unspecified symptoms and signs involving the genitourinary system; Z23 Encounter for immunization; Z76.89 Persons encountering health services in other specified circumstances; B96.89 Other specified bacterial agents as the cause of diseases classified elsewhere
CPT/HCPCS: 36415; 80053; 80061; 83036; 84443; 85025